=== PATIENT | female | born 1980 | race Caucasian/White ===

== ENCOUNTER 2019-06-02 11:46 | Outpatient (CLI) | payer BC, SELFPAY ==
[2019-06-04 15:26] LABS: SARS-CoV-2 RNA Undetected (Undetected); SARS-CoV-2 Specimen Source Nasopharynx
== END 2019-06-02 12:06 ==
PROVIDERS: PCP Family Medicine; Visit Provider Specialist/Technologist Athletic Trainer
DX: Z20.828 Contact with and (suspected) exposure to other viral communicable diseases (principal)
CPT/HCPCS: U0003

== ENCOUNTER 2023-02-21 18:42 | Outpatient (REF) | payer BC, SELFPAY ==
[2023-02-21 21:14] LABS: TSH (W/Ref FT4) 0.93 uIU/mL (0.36-3.74)
== END 2023-02-21 18:43 | disposition home or self-care (01) ==
LOC: NCHCN 18:42
PROVIDERS: PCP Family Medicine; Visit Provider Family Medicine
DX: R53.83 Other fatigue (principal)
CPT/HCPCS: 84443

== ENCOUNTER 2024-02-14 15:26 | Outpatient (CLI) | payer BC, SELFPAY ==
--- NOTE | 2024-02-14 | DI.MAMMO_ITS ---
Exam(s) MAMMO SCREENING EXAM: MAMMO SCREENING CLINICAL HISTORY: Baseline screening, Z12.31. TECHNIQUE: Bilateral full field digital CC and MLO mammographic images were obtained with 3D tomosyn thesis and utilizing computer aided detection (CAD). COMPARISON: None. This is a baseline mammogram on a 43-year-old. FINDINGS: There are no CAD designations There are no spiculated masses nor malignant appearing microcalcification groups. There is no significant architectural distortion nor skin thickening-retraction. IMPRESSION: No radiographic evidence of malignancy. BI-RADS Category 1 - Negative Breast Density - Category B - Scattered areas of fibroglandular density Breast density Category C or D implies that the patient has dense breast tissue. Dense breast tissue can make it harder to find cancer on a mammogram. Dense breast tissue is also associated with an incr eased risk of breast cancer. This information about the result of the mammogram report was provided to the patient to raise their awareness. Use this report when you speak with the patient about their risks for breast cancer, which includes their family history. At that time, you may recommend additional screening tests (Ultrasoun d or MRI) as these tests may add significant information. A negative radiographic report should not delay biopsy if a dominant or clinically suspicious mass is present. Up to ten percent of cancers are not identified on mammography. A negative report may reinforce clinical impression. Adenosis and dense breasts may obscure an underlying neoplasm. False positive reports average 6 to 10%. Patient will receive a letter notifying them of these results.
--- OUTSIDE RECORDS SUMMARY | 2024-02-14 15:29 | XMS_ITS | Continuity of Care Document ---
Author Organization [place] - [facility] Address [address] [place] [address] Assessment No assessment recorded. Plan of Treatment Reminders Order Date Submit Date Provider Last Modified By Organization Details Last Modified Time Details Appointments Nurse Visit 2024 10:00A M [place] Nursing Staff Not available Not available Not available Follow Up 2024 02:00P M OBED CAREY Not available Not available Not available Lab None recorded. Referral None recorded. Procedures colonosco py screening (PROC) - Due for screening colonosco py 2023 024 [facility], [address] [place] [address] , [facility], [place], [address], 01/24/2024 16:29:05 Surgeries None recorded. Imaging MAMMO, screening , bilateral - no to screening questions 2023 024 [facility] (Radiology), [address] [place] [address] [place], [address], 01/23/2024 08:42:19 Medication Orders citalopra m 40 mg tablet 2023 024 [facility], [address] [place], [address], 01/22/2024 16:28:55 rosuvasta tin 20 mg tablet 2023 024 [facility], [address] [place], [address], 01/22/2024 16:28:55 Patient TargetsNo targets recorded. Patient Instructions Encounter Date Encounter Id Patient Instructions Last Modified By Organization Details Last Modified Time 01/22/2024 [id number] Dear reji, Thank you for visiting us today. We appreciate your commitment to maintaining and improving your health. Here is a summary of the hernández instructions from today's consultation: - Obtain results from your previous Pap smear conducted at [facility]. - Schedule a mammogram to monitor breast health. - Begin preparations for a colonoscopy, given your age and family history. - Continue monitoring your cholesterol levels. We discussed switching your cholesterol medication from atorvastatin to rosuvastatin to potentially reduce side effects. Remember to take it at night for better efficacy. - Follow up on your liver function tests in about a month to monitor any potential side effects from the cholesterol medication. - Refill prescriptions for atorvastatin, citalopram, and your ADHD medications. - Schedule and complete a controlled substance treatment form during your next visit. - We will initiate the referral process for your mammogram and colonoscopy. Please ensure to follow up with us or your pharmacy as needed to manage your prescriptions and appointments. Your next regular visit is due in six months, and we recommend scheduling it in the morning so you can fast beforehand if needed for cholesterol testing. Thank you once again for your proactive approach to your health. If you have any questions or concerns before your next visit, do not hesitate to contact our office. Best regards, Dr. Obed Carey MD Family Medicine [email or web address] Not available 01/23/2024 07:59:06 Reason for Referral None Reported. Problems Name Problem SNOMED Code Status Onset Date Resolution Date Notes Provider Name and Address Organization Details Recorded Time Attentio n deficit hyperact ivity disorder 696597599 Active [address], [place], [address] , [facility] 4 10:34:30 Migraine 13459941 Active 2017 Problem Code: G43.909; Problem Code Type: ICD-10; MD [address], [place], [address] , [facility] 4 07:53:10 Counseli harjit Completed 201707/02/2017 06/19/19 18 - Comments only - Quita carmona DIRECTOR HAIR - - Here for [facility]. We have no vaccines and no pap smear. She has had her [employer] care at [facility] [place] and is not sure when her last pap was done. Records requeste d. 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 She reports she does not believe in the flu vaccine but believes she has gotten all her other vaccines . She will return for her annual at her next convenie [facility] Problem Code: Z71.89; Problem Code Type: ICD-10; Not Available [facility] 3 03:56:01 Anxiety 61483167 Active 2018 Problem Code: F41.8; Problem Code Type: ICD-10; [facility] 3 12:35:47 Viral disease 71287822 Completed 201906/06/2019 Problem Code: B34.9; Problem Code Type: ICD-10; Not Available [facility] 3 03:56:01 Acute pharyngi tis 007347789 Completed 202012/10/2020 11/27/19 21 - Comments only - Annabel Carlos DIRECTOR HAIR - Negative strep complete d at today's visit. Patient reports negative COVID test since symptom onset. I think this is likely to pass without further interven tion. There is a small chance it is allergy mediated (althoug h not likely which I was transpar ant about). She could try an antihist amine if she would like. Problem Code: J02.9; Problem Code Type: ICD-10; Not Available [facility] 3 03:56:01 Hyperlip idemia 17648741 Active 2021 Problem Code: E78.49; Problem Code Type: ICD-10; WILLOW GRIMM, [facility] 3 12:35:47 Obesity 089909447 Active 2022 Problem Code: E66.9; Problem Code Type: ICD-10; MD Kulwant [address], [facility] [address] , [facility] 4 07:53:16 Posttrau matic stress disorder 88874502 Active 2022 Problem Code: F43.10; Problem Code Type: ICD-10; WILLOW GRIMM, [facility] 3 12:35:47 Episodic tension- type headache 191180864 Active 2022 Problem Code: G44.219; Problem Code Type: ICD-10; MD Kulwant [address], [facility] [address] , [facility] 4 07:53:20 Adult health examinat ion Active 2022 Problem Code: Z00.00; Problem Code Type: ICD-10; WILLOW GRIMM, [facility] 3 12:35:47 Adult health examinat ion Completed 200311/29/2018 Problem Code: Z00.00; Problem Code Type: ICD-10; WILLOW GRIMM, [facility] 3 12:35:47 Major depressi on, single episode 89169719 Completed 201811/29/2022 08/13/19 22 - Comments only - Annabel TIAN - Doing well at this time, no medicati on changes. Problem Code: F32.9; Problem Code Type: ICD-10; Not Available [facility] 3 03:56:04 Fatigue 30100385 Completed 201708/23/2022 Problem Code: R53.83; Problem Code Type: ICD-10; MD Kulwant [address], [facility] [address] , [facility] 4 07:53:26 Visual disturba nce 25185623 Completed 201708/23/2022 Problem Code: H53.9; Problem Code Type: ICD-10; Not Available [facility] 3 03:56:07 Abnormal weight gain 222104120 Completed 201701/11/2022 Problem Code: R63.5; Problem Code Type: ICD-10; Not Available [facility] 3 03:56:09 Headache 01299410 Completed 201711/29/2022 08/13/19 22 - Comments only - Annabel Gonzalez DIRECTOR HAIR - Improved with topamax, without side effects. Will continue at 50mg dosage. Problem Code: R51; Problem Code Type: ICD-10; Not Available [facility] 3 03:56:10 Problem Notes None recorded. Medical Equipment None Reported. Medications Name Sig Start Date Stop Date Status Note LastModified by Organization Details LastModified Time atorvastati n 40 mg tablet TAKE 1 TABLET BY MOUTH AT BEDTIME 01/21 completed Not Available Not Available Not Available Adderall 30 mg tablet 1TAB daily 2011 active Not Available Not Available Not Avai lable Adderall 20 mg tablet Take 1 tablet by mouth once a day 2023 active Not Available Not Available Not Avai lable doxycycline hyclate 100 mg capsule Take 1 capsule by mouth twice a day 08/30 completed Not Available Not Available Not Available citalopram 40 mg tablet Take 1 tablet by mouth once a day active Not Available Not Available No t Available Topamax 25 mg tablet Take 1 tablet by mouth once a day 08/12 completed Not Available Not Available Not Available Adderall XR 20 mg capsule,ext ended release Take 1 capsule by mouth every morning 2023 active Not Available Not Available Not Avai lable citalopram 20 mg tablet Take 1 by mouth daily 06/09 completed Not Available Not Available Not Available rizatriptan 10 mg disintegrat ing tablet DISSOLVE 1 TABLET ON THE TONGUE EVERY DAY NEEDED. MAY REPEAT 1 TIME IN 2 HOURS IF NOT EFFECTIVE active Not Available Not Available No t Available dextroamphe tamine-amph etamine ER 10 mg 24hr capsule,ext end release TAKE TWO CAPSULES BY MOUTH EVERY MORNING 12/03 completed Not Available Not Available Not Available Wellbutrin SR 200 mg tablet, 12 hr sustained-r elease 1TAB daily 06/18 completed Not Available Not Available Not Available rosuvastati n 20 mg tablet Take 1 tablet every day by oral route at bedtime. active Not Available Not Available No t Available Topamax 50 mg tablet Take 1 tablet by mouth once a day 02/21 completed Not Available Not Available Not Available polyethylen e glycol 3350 17 grams daily 08/22 completed Not Available Not Available Not Available Repatha SureClick 140 mg/mL subcutaneou s pen injector Inject 3 pen injector subcutane ously once a month 05/17 completed Not Available Not Available Not Available Ozempic 0.25 mg or 0.5 mg (2 mg/1.5 mL) subcutaneou s pen injector 02/21 completed Not Available Not Available Not Available Ozempic 1 mg/dose (4 mg/3 mL) subcutaneou s pen injector INJECT 2MG (2ML) SUBCUTANE OUSLY ONCE A WEEK DIRECTED 02/21 completed Not Available Not Available Not Available Wegovy 0.25 mg/0.5 mL subcutaneou s pen injector Inject 1/4 mg subcutane ously once a week for four weeks then increase to 0.5 mg once weekly 05/04 completed Not Available Not Available Not Available Ozempic 2 mg/dose (8 mg/3 mL) subcutaneou s pen injector INJECT 2 MG UNDER THE SKIN ONE DAY A WEEK 2023 active Not Available Not Available Not Avai lable Ozempic 0.25 mg or 0.5 mg (2 mg/3 mL) subcutaneou s pen injector Inject 1/2 mg subcutane ously once a week For 4 weeks, then inject 0.5 mg subcutane ously once weekly. 07/07 completed Not Available Not Available Not Available Vitals Date Recorded Body height Body mass index (BMI) Body weight Oxygen saturation Oxygen saturation in Arterial blood by Pulse oximetry Heart rate Systolic blood pressure Diastolic blood pressure Provider Name and Address Organization Details Last Updated DateTime 4 163.83 cm 26.2 kg/m2 81482.8 2 g 97 % 97 % 83 /min 118 mm[Hg] 72 mm[Hg] Luciana Forman [facility] 16:03:50 Social History Question Answer Notes LastModified by Organizat ion Details LastModified Time Tobacco Smoking Status Never Smoker Luciana barber, [facility] 01/22/2024 16:05:06 Do You Have An Advance Directive? No Information n ot available 01/23/2024 Is Blood Transfusion Acceptable In An Emergency? Yes Information not available 01/23/2024 What Is Your Code Status? Full Code Information not available 01/23/2024 1) Date Of Last VPMS Check? 01/02/2024 Dextro-Amph et 20mg Once A Day Filled 12/05/23 #28 And The Adderall XR 20mg Filled 12/05/23 #28 Information not available 01/02/2024 2) VPMS Findings No Concerns Informa tion not available 12/04/2023 4) Daily MME 0 Information not available 12/04/2023 Would You Say That, In General, Your Health Is Good Information not available 01/23/2024 Women Aged 18-50 - Would You Like To Become In The Next Year? (Female Patients Only) No Information not available 01/23/2024 How Often Does Anyone, Including Family, Physically Hurt You? Never Information not available 01/23/2024 How Often Does Anyone, Including Family, Insult Or Talk Down To You? Never Information no t available 01/23/2024 How Often Does Anyone, Including Family, Threaten You With Harm? Never Information not available 01/23/2024 How Often Does Anyone, Including Family, Scream Or Curse At You? Never Information not available 01/23/2024 Within The Past 12 Months, You Worried That Your Food Would Run Out Before You Got Money To Buy More. Never True Information n ot available 01/23/2024 Within The Past 12 Months, The Food You Bought Just Didn't Last And You Didn't Have Money To Get More. Never True Information n ot available 01/23/2024 How Hard Is It For You To Pay For The Very Basics Like Food, Housing, Medical Care, And Heating? Would You Say It Is: Not Hard At All Information not available 01/23/2024 In The Past 12 Months, Has Lack Of Reliable Transportation Kept You From Medical Appointments, Meetings, Work Or From Getting Things Needed For Daily Living? No Information not available 01/23/2024 What Is Your Housing Situation Today? I Have Housing. Information not available 01/23/2024 How Often In The Past Year Have You Used Marijuana (including Smoking, Vaping, Dabbing, Or Edibles)? Never Information not available 01/23/2024 How Often In The Past Year Have You Used Prescription Medications That Were Not Prescribed To You? Never Information n ot available 01/23/2024 How Often In The Past Year Have You Taken Your Own Prescription Medication More Than The Way It Was Prescribed Or For Different Reasons Than Its Intended Purpose? Never Information no t available 01/23/2024 How Often In The Past Year Have You Used Other Drugs (for Example, Heroin, Cocaine, Meth, Salvia, Inhalants)? Never Information not available 01/23/2024 Have You Ever Used IV Drugs? No Information not available 01/23/2024 Date Of Most Recent SBINS 01/22/2024 Information not available 01/23/2024 Do You Have A Medical Power Of Student Services Representative? No Information not available 01/23/2024 What Was The Date Of Your Most Recent Tobacco Screening? 01/22/2024 [email or web address] Information not available 01/22/2024 Has Tobacco Cessation Counseling Been Provided? No Information not available 01/23/2024 Do You Or Have You Ever Used Any Other Forms Of Tobacco Or Nicotine? No Information not available 01/23/2024 Sex: Female Functional Status None recorded. Mental Status None recorded. Family History Nothing Reported Notes:*Problem: Her mother h as bipolar disorder, is 56. Her father is 59 and has heart disease/valve issue. Her two siblings are healthy. She feels that heart disease, hypertension, and hyperlipidemia, and Alzheimer's disease run in her family. Medical History No medical history recorded. Gynecological HistoryNo gynecological history recorded. Obstetrics History GPAL:G 0 P 0 0 0 0 Immunizations Vaccine Type Date Status Note Provider Nam e and Address Organization Details Recorded Time Tdap 1 completed Not Available [facility] 01/12/2023 04:06:59 SARS-COV-2 (COVID-19) vaccine, UNSPECIFIED 1 completed Not Available [facility] 01/12/2023 04:07:06 SARS-COV-2 (COVID-19) vaccine, UNSPECIFIED 1 completed Not Available [facility] 01/12/2023 04:07:06 SARS-COV-2 (COVID-19) vaccine, UNSPECIFIED 0 completed Not Available [facility] 01/12/2023 04:07:06 COVID-19, mRNA, LNP-S, PF, serg-sucrose, 30 mcg/0.3 mL 3 completed OBED CAREY MD [facility] [address], [place], [address], [facility] 02/27/2023 21:50:54 Past Encounters Encounter ID Performer Location Encounter Start Date Encounter Closed Date Diagnosis/Indication Diagnosis SNOMED-CT Code Diagnosis ICD10 Code [id number] OBED CAREY MD [address] [address] 01/10/2024 09:54:30 01/10/2024 10:44:34 Posttraumatic stress disorder 14739598 F43.10 [id number] OBED CAREY MD [address] [address] 01/22/2024 15:19:27 01/22/2024 16:34:42 Adult health examination 091683535 Z00.00 Screening for malignant neoplasm of colon 105080656 Z12.11 Screening mammography 24 758510 Z12.31 Attention deficit hyperactivity disorder 791732763 F90.9 Anxiety 10355210 F41.9 Hyperlipidemia 75400847 E78.5 Obesity 914514557 E66.9 Health Concerns Section Related Observation LastModified by Organization Detai ls LastModified Time None Recorded Concern Status LastModified by Organization Details LastModified Time None Recorded Payers Encounter Date Sequence Insurance Name Policy Number Policy B[place] Covered Member ID B[place] Member ID Guarantor Name 01/22/2024 1 [facility] [id number] Irma oLmbardi [id number] Irma Padilla Lombardi Notes Date Note Type Note Provider Name and Address Organization Details Recorded Time 01/22/2024 text/html The patient, a 43-year-old, is here for an annual exam and reports having had a Pap smear about six months ago at [facility]. She mentions a family history of cancer, with an aunt having had breast cancer and a grandfather with pancreatic cancer. Her father had heart disease related to valve issues and a heart attack but is currently stable on medication. The patient has received the flu vaccine but expresses reluctance to get the COVID vaccine, citing previous infections despite vaccination. She reports having had COVID twice and influenza once, even after receiving the flu shot. She denies any current issues with headaches, vision, chest pain, palpitations, or significant respiratory symptoms, though she notes some as expected shortness of breath when running. She mentions her menstrual periods are becoming less regular. Regarding medications, the patient has not taken atorvastatin for about five months due to experiencing significant fatigue and head fog when taking it during the day. She is willing to try it at night or another brand going forward.. She also takes yam root for hot flashes at night. The patient is on amphetamine/dextro amphetamine (Adderall) for ADHD, which she reports is working well without side effects. She does not smoke or drink and denies substance abuse. She also mentions needing a refill for citalopram. OBED CAREY MD [address], [place], [address], [facility]. 01/24/2024 13:33:36 OBGyn Episode No OBEpisode recorded.
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
--- OUTSIDE RECORDS SUMMARY | 2024-02-14 15:29 | XMS_ITS | Data Portability ---
Author Organization [place] - [facility] Address [address] [place] [address] Assessment No assessment recorded. Plan of Treatment Reminders Order Date Submit Date Provider Last Modified By Organization Details Last Modified Time Details Appointments Nurse Visit 2024 10:00A M [place] Nursing Staff Not available Not available Not available Follow Up 2024 02:00P M REYNOLD CAREY Not available Not available Not available Lab TSH, serum, reflex free T4 2022 023 [email or web address] [facility] (Registration ), [address] [place] [address] [place], [address], 02/28/2023 10:48:28 Referral None recorded. Procedures colonosco py screening (PROC) - Due for screening colonosco py 2023 024 [facility], [address] [place] [address] , [facility] [address], [place], [address], 01/24/2024 16:29:05 Surgeries None recorded. Imaging MAMMO, screening , bilateral - no to screening questions 2023 024 [facility] (Radiology), [address] [place] [address] [place], [address], 01/23/2024 08:42:19 Medication Orders Adderall 20 mg tablet 2022 023 [facility], [address] [place], [address], 03/23/2023 16:11:07 Adderall XR 20 mg capsule,e xtended release 2022 023 [facility], [address] [place] [address], [id number], 02/21/2023 23:26:09 Adderall 20 mg tablet 2022 023 [facility], [address] [place] [address], [address], 03/23/2023 16:11:07 Adderall 20 mg tablet 2022 023 cynthia [facility], [address] [place] [address], [address], 03/23/2023 16:11:07 Adderall XR 20 mg capsule,e xtended release 2022 023 [facility], [address] [place] [address], [id number], 02/21/2023 23:26:09 Adderall XR 20 mg capsule,e xtended release 2022 023 [facility], [address] [place] [address], [address], 02/21/2023 23:26:11 citalopra m 40 mg tablet 2023 024 [facility], [address] [place] [address], [address], 01/22/2024 16:28:55 rosuvasta tin 20 mg tablet 2023 024 [facility], [address] [place] [address], [address], 01/22/2024 16:28:55 Patient TargetsNo targets recorded. Patient Instructions Encounter Date Encounter Id Patient Instructions Last Modified By Organization Details Last Modified Time 01/10/2024 [id number] Dear reji, Thank you for visiting my [...] questions or need further assistance. Best regards, Reynold Carey MD Family Medicine hallie Not available 01/10/2024 10:52:45 01/22/2024 [id number] Dear reji, Thank you for visiting us [...] to contact our office. Best regards, Dr. Reynold Carey MD Family Medicine hallie Not available 01/23/2024 07:59:06 Reason for Referral None Reported. Results Created Date Observation Date Name Description Value Unit Range Abnormal Flag Note LastModifiedBy Organization Detail LastModifiedTime 02/22/20 23 02/21/2023 TSH (W/RE F FT4) TSH (w/ref FT4) 0.93 uIU/m L 0.36-3 .74 normal NOTE: Supra -phys iolog ic doses of Bioti n(B7) may cause false negat pj resul ts. Not Available [facility] [address], [place], [address] 02/21/2023 21:19:37 Result Notes None recorded. Problems Name Problem SNOMED Code Status Onset Date Resolution Date Notes Provider Name and Address Organization Details Recorded Time Attentio n deficit hyperact ivity disorder 362541225 Active [address], [place], [address] , [facility] 4 10:34:30 Migraine 44220117 Active 2017 Problem Code: G43.909; Problem Code Type: ICD-10; MD [address], [place], [address] , [facility] 4 07:53:10 Deidre lombardi Completed 201707/02/2017 06/19/19 18 - Comments only - Quita TIAN - - Here for [facility] of care. We have no vaccines and no pap smear. 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 Records requeste d. 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 She reports she does not believe in the flu vaccine but believes she has gotten all her other vaccines . She will return for her annual at [facility] next [facility] Problem Code: Z71.89; Problem Code Type: ICD-10; Not Available [facility] 3 03:56:01 Anxiety 10602611 Active 2018 Problem Code: F41.8; Problem Code Type: ICD-10; [facility], [facility] 3 12:35:47 Viral disease 30699438 Completed 201906/06/2019 Problem Code: B34.9; Problem Code Type: ICD-10; Not Available [facility] 3 03:56:01 Acute pharyngi tis 534673232 Completed 202012/10/2020 11/27/19 21 - Comments only - Annabelleonor Gonzalez 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 - Negative strep complete d at today's [...] J02.9; Problem Code Type: ICD-10; Not Available [facility] 3 03:56:01 Hyperlip idemia 58345216 Active 2021 Problem Code: E78.49; Problem Code Type: ICD-10; [place] [facility], [facility] 3 12:35:47 Obesity 516185271 Active 2022 Problem Code: E66.9; Problem Code Type: ICD-10; MD Kul[address], [facility] [address] , [facility] 4 07:53:16 Posttrau matic stress disorder 92278800 Active 2022 Problem Code: F43.10; Problem Code Type: ICD-10; [place], [facility] 3 12:35:47 Episodic tension- type headache 509894271 Active 2022 Problem Code: G44.219; Problem Code Type: ICD-10; MD Kulwant [address], [facility] [address] , [facility] 4 07:53:20 Adult health examinat ion Active 2022 Problem Code: Z00.00; Problem Code Type: ICD-10; REX JUNIOR MA null, [facility] 3 12:35:47 Adult health examinat ion Completed 200311/29/2018 Problem Code: Z00.00; Problem Code Type: ICD-10; REX JUNIOR MA null, [facility] 3 12:35:47 Major depressi on, single episode 17907391 Completed 201811/29/2022 08/13/19 22 - Comments only - Annabel Gonzalez 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 Problem Code: F32.9; Problem Code Type: ICD-10; Not Available [facility] 3 03:56:04 Fatigue 22072758 Completed 201708/23/2022 Problem Code: R53.83; Problem Code Type: ICD-10; REYNOLD CAREY MD [address], [place], [address] [facility] 4 07:53:26 Visual disturba nce 56318087 Completed 201708/23/2022 Problem Code: H53.9; Problem Code Type: ICD-10; Not Available [facility] 3 03:56:07 Abnormal weight gain 713353163 Completed 201701/11/2022 Problem Code: R63.5; Problem Code Type: ICD-10; Not Available [facility] 3 03:56:09 Headache 19356462 Completed 201711/29/2022 08/13/19 22 - Comments only - Annabelleonor Gonzalez 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 Will continue at 50mg dosage. Problem Code: R51; Problem Code Type: ICD-10; Not Available [facility] 3 03:56:10 Problem Notes None recorded. [...] and Address Organization Details Last Updated DateTime 3 163.83 cm 28.1 kg/m2 85834.3 3 g 97.3 [degF] 98 % 98 % 80 /min 128 mm[Hg] 84 mm[Hg] REYNOLD CAREY MD [address], [place], [address] [place] [address] 3 14:56:28 Date Recorded Body height Body mass index (BMI) Body weight Oxygen saturation Oxygen saturation in Arterial blood by Pulse oximetry Heart rate Systolic blood pressure Diastolic blood pressure Provider Name and Address Organization Details Last Updated DateTime 4 163.83 cm 26.1 kg/m2 42393.3 2 g 96 % 96 % 97 /min 119 mm[Hg] 77 mm[Hg] Gary Gilbert [facility] 4 13:44:55 Date Recorded Body height Body mass index (BMI) Body weight Body temperature Oxygen saturation Oxygen saturation in Arterial blood by Pulse oximetry Heart rate Systolic blood pressure Diastolic blood pressure Provider Name and Address Organization Details Last Updated DateTime 163.83 cm 26.5 kg/m2 81308 g 97.2 [degF] 98 % 98 % 74 /min 122 mm[Hg] 82 mm[Hg] REX JUNIOR MA [facility] 4 10:14:03 Date Recorded Body height Body mass index (BMI) Body weight Oxygen saturation Oxygen saturation in Arterial blood by Pulse oximetry Heart rate Systolic blood pressure Diastolic blood pressure Provider Name and Address Organization Details Last Updated DateTime 4 163.83 cm 26.2 kg/m2 38508.8 2 g 97 % 97 % 83 /min 118 mm[Hg] 72 mm[Hg] Luciana Forman [facility] 16:03:50 Social History Question Answer Notes LastModified by Organizat ion Details LastModified Time Tobacco Smoking Status Never [facility] 01/22/2024 16:05:06 Do You Have An [...] Do You Have A Medical Power Of Scrap Metal Collector? No Information not available 01/23/2024 What Was The Date Of Your Most Recent Tobacco Screening? 01/22/2024 Information not available 01/22/2024 Has Tobacco Cessation [...] Recorded Time Tdap 1 completed Not Available [facility] 01/12/2023 04:06:59 SARS-COV-2 (COVID-19) vaccine, UNSPECIFIED 1 completed Not Available [facility] 01/12/2023 04:07:06 SARS-COV-2 (COVID-19) vaccine, UNSPECIFIED 1 completed Not Available [facility] 01/12/2023 04:07:06 SARS-COV-2 (COVID-19) vaccine, UNSPECIFIED 0 completed Not Available [facility] 01/12/2023 04:07:06 COVID-19, mRNA, LNP-S, PF, serg-sucrose, 30 mcg/0.3 mL [address], [place], [address], [facility]. 02/27/2023 21:50:54 Past Encounters Encounter ID Performer Location Encounter Start Date Encounter Closed Date Diagnosis/Indication Diagnosis SNOMED-CT Code Diagnosis ICD10 Code [id number] REYNOLD CAREY MD [address] [address] 02/21/2023 14:46:11 02/21/2023 16:10:52 Attention deficit hyperactivity disorder 731929702 F90.9 Active or passive immunization 455054720 Z23 Fatigue 10368056 R53.83 [id number] REYNOLD CAREY MD [address] [address] 10/18/2023 13:35:49 10/18/2023 14:06:32 Upper respiratory infection 10786115 J06.9 [id number] REYNOLD CAREY MD [address] [address] 01/10/2024 09:54:30 01/10/2024 10:44:34 Posttraumatic stress disorder 75957605 F43.10 [id number] REYNOLD CAREY MD [address] [address] 01/22/2024 15:19:27 01/22/2024 16:34:42 Adult health examination 797127861 Z00.00 Screening for malignant neoplasm of colon 689777311 Z12.11 Screening mammography 24 959921 Z12.31 Attention deficit hyperactivity disorder 032517781 F90.9 Anxiety 57280360 F41.9 Hyperlipidemia 30868276 E78.5 Obesity 530584969 E66.9 Health Concerns Section Related Observation LastModified by Organization Detai ls LastModified Time None Recorded Concern Status LastModified by Organization Details LastModified Time None Recorded Advance Directives Directive N: Payers Encounter Date Sequence Insurance Name Policy Number Policy Bingham Covered Member ID Bingham Member ID Guarantor Name 02/21/2023 1 [place] [employer] [place] [id number] Irma Lombardi [id number] Irma Lombardi 10/18/2023 1 [place] [employer] [place] [id number] Irma [id number] Irma Lombardi 01/10/2024 1 [place] [employer] [place] [id number] Irma Lombardi [id number] Irma Lombardi 01/22/2024 1 [place] [employer] [place] [id number] Irma Lombardi [id number] Irma Lombardi Notes Date Note Type Note Provider Name and Address Organization Details Recorded Time 02/21/2023 text/html Patient here for follow-up for her ADHD and other issues. Is due for refills for her Adderall. We have attempted to try to match up the prescription dates for her long-acting and short acting doses. Has number today, will try again today. Patient unchanged. When she does not have her Adderall she states she in particular coworkers definitely noticed. Much more flighty, disorganized. States she is felt fatigued recently. Has not had menses for quite a bit of time and is getting them once again. Does pretty. Menopausal. Getting over a recent cold symptoms, back to normal now. She has no side effects to the Adderall, no tics, sleeping well MD [address], [place], [address], [facility]. 02/27/2023 21:54:17 10/18/2023 text/html 1 wk ago sore th roat began, progressed to aches, dry cough, [place]. Upper congestion. No fever, no GI. Now head foggy, throat hurts, dry cough, better energy. No myalgia or arthralgia. Symptoms significant proved. Still has residual generally nonproductive cough. No fevers chills myalgias or arthralgias MD [address], [place], [address], [facility]. 10/22/2023 23:15:33 01/10/2024 text/html The patient repo rts ongoing [...] and their love for the work itself. MD [address], [place], [address], [facility]. 01/14/2024 14:45:41 01/22/2024 text/html The patient, a 43-year-old, is [...] flashes at night. The patient is on amphetamine/dextroamph etamine (Adderall) for ADHD, which she reports is working well without side effects. She does not smoke or drink and denies substance abuse. She also mentions needing a refill for citalopram. MD [address], [place], [address], [facility] 01/24/2024 13:33:36 OBGyn Episode No OBEpisode recorded.
--- OUTSIDE RECORDS SUMMARY | 2024-02-14 15:29 | XMS_ITS | Clinical Summary ---
Author Organization [facility] Address [address] [place] [address] Care Team Providers Care Hammerer Tab Name Role Phone [facility], Primary Care Provider [phone] Allergies Active Allergy Reactions Criticality Noted Date Comments Venom-Honey Bee 11/21/2018 Other reaction(s): severe swelling Medications citalopram (CELEXA) 10 mg tablet Take 10 mg by mouth daily. Active Social History Tobacco Use Types Packs/Day Years Used Date Smoking Tobacco: Never Assessed Interpersonal Safety Answer Date Record ed Physically Hurt Never 10/05/2019 Verbally Threaten Not on file 10/05/2019 Comments Unknown Sex and Gender Information Value Date Recorded Sex Assigned at Not on file Legal Sex Female 18:06 EST Gender Identity Female 02/16/2019 15:00 EST Sexual Orientation Not on file Obstetrics History Last Filed Vital Signs Vital Sign Reading Time Taken Comments Blood Pressure 128/93 06/17/2022 1553 EDT Pulse 86 06/17/2022 1553 EDT Temperature 36.7 ??C (98 ??F) 06/17/2022 1553 EDT Respiratory Rate 14 06/17/2022 1553 EDT Oxygen Saturation 98% 06/17/2022 1553 EDT Inhaled Oxygen Concentration - - Weight 88.8 kg (195 lb 11.2 oz) 12/25/2021 1215 EDT Height 162.6 cm (5' 4) 12/25/2021 1215 EDT Body Mass Index 33.59 12/25/2021 1215 EDT Plan of Treatment Health Maintenance Due Date Last Done Comments Hepatitis B Vaccine (1 of 3 - 19+ 3-dose series) 10/26 COVID-19 Vaccine (2023- season) 2023 Hepatitis C Screen Completed 06/17/2022 Procedures Procedure Name Priority Date/Time Associated Diagnosis Comments HEPATITIS C AB W REFLEX TO HCV RNA BY PCR STAT 06/17/2022 16:03 EDT from Last 3 Months or Most Recently Relevant to Health Maintenance Results * HEPATITIS C AB W REFLEX TO HCV RNA BY PCR (06/17/2022 16:03 EDT) Hep C Antibody Negative Negative 06/17/2022 17:[address] [facility] Blood VENOUS BLOOD / Unknown Venipuncture / Unknown 06/17/2022 16:03 EDT 06/17/2022 16:07 EDT Abhilash Richardson PA-C CHEMISTRY & BLOOD GAS ORDERABLES Final Result [facility] [address] [place] [address] from Last 3 Months or Most Recently Relevant to Health Maintenance [place] [place] [address] Member Subscriber Plan / Payer (Ef fective 2018-Present) Name:Irma Lombardi Relation to Subscriber:Self Name:Irma Lombardi Payer ID:Not on file Group ID:Not on file Type:Work Comp GL Address: [place] [id number] [facility] , [address] [place] [address] Care Teams Hammerer Tab Relationship Specialty Start Date End Date [facility], [place] [address] [place] [address] PCP - General 06/17/22
--- OUTSIDE RECORDS SUMMARY | 2024-02-14 15:30 | XMS_ITS | Encounter Summary ---
Author Organization [facility] Address [address] [place] [address] Care Team Providers Care Automatic Maintainer Name Role Phone Deyanira Valentino MD Primary Care Provider [phone] Encounter Details Date Type Department Care Team (Latest Contact Info) Description 09/18/2014 9:43 EDT - 09/18/2014 23:59 EDT Hospital Encounter [address] [address] Unknown, Provider, Discharge Disposition: Home or Self Care Social History Tobacco Use Types Packs/Day Years Used Date Smoking Tobacco: Never Assessed Comments Unknown Sex and Gender Information Value Date Recorded Sex Assigned at Not on file Legal Sex Female 18:06 EST Gender Identity Female 02/16/2019 15:00 EST Sexual Orientation Not on file documented as of this encounter Discharge Disposition Disposition Code Departure Means Destination Home or Self Senior Living documented in this encounter Plan of Treatment Not on file documented as of this encounter Visit Diagnoses Not on filedocumented in this encounter Care Teams Automatic Maintainer Relationship Specialty Start Date End Date Deyanira Valentino MD [address] [place] [id number] PCP - General 12/09/09 02/21/21 documented as of this encounter
--- OUTSIDE RECORDS SUMMARY | 2024-02-14 15:30 | XMS_ITS | Encounter Summary ---
Author Organization [facility] Address [address] [place] [address] Care Team Providers Care Deputy Harbormaster Name Role Phone Annabel Gonzalez ASMITA Primary Care Provider Encounter Details Date Type Department Care Team (Late st Contact Info) Description 02/22/2021 9:35 EST Phlebotomy Only [facility] - Outpatient Phlebotomy Drawing [address] [place] [address] Lab, [facility] Op Phlebotomy Health examination in population survey (Primary Dx) Social History Tobacco Use Types Packs/Day Years [...] on file documented as of this encounter Plan of Treatment Not on file documented as of this encounter Procedures Procedure Name Priority Date/Time Associated Diagnosis Comments QUANTIFERON MITOGEN (PERFORMABLE) Routine 02/22/2021 9:54 EST Health examination in population survey QUANTIFERON TB2 (PERFORMABLE) Routine 02/22/2021 9:54 EST Health examination in population survey QUANTIFERON TB1 (PERFORMABLE) Routine 02/22/2021 9:54 EST Health examination in population survey QUANTIFERON NIL (PERFORMABLE) Routine 02/22/2021 9:54 EST Health examination in population survey QUANTIFERON INTERPRETATION (PERFORMABLE) Today 02/22/2021 9:54 EST Health examination in population survey QUANTIFERON TB GOLD PLUS Routine 02/22/2021 9:54 EST Health examination in population survey RUBELLA IGG ANTIBODY Routine 02/22/2021 9:54 EST Health examination in population survey HEPATITIS B SURFACE ANTIBODY Routine 02/22/2021 9:54 EST Health examination in population survey VARICELLA IGG ANTIBODY Routine 9:54 EST Health examination in population survey MUMPS ANTIBODY IGG Routine 02/22/2021 9: 54 EST Health examination in population survey documented in this encounter Results * QUANTIFERON INTERPRETATION (PERFORMABLE) (02/22/2021 9:54 EST) Quantiferon Interpretation Negative Negative 02/25/2021 13:05 EST [facility] Comment:No interferon-gamma response to M. tuberculosis antigens was detected. ??Infection with M. tuberculosis is unlikely. A single negative result does not exclude infection with M. tuberculosis. ??In patients at high risk for M. tuberculosis infection, a second test should be considered. TB1 Ag minus Nil 0.00 IU/ml 02/26/20 13:05 EST [facility] TB2 Ag minus Nil 0.00 IU/mL 02/26/20 13:05 [facility] Blood VENOUS BLOOD / Unknown Venipuncture / Unknown 02/22/2021 9:54 EST 02/25/2021 13:04 EST Narrative [facility] - 02/25/2021 13:05 EST Results were obtained with the [employer] QuantiFERON-TB Gold Plus CLIA. New platform in use 11/10/2020 [facility] Employee Health IMMUNOLOGY AND SEROLO GY ORDERABLES Final Result [facility] [address] [place] [address] * QUANTIFERON MITOGEN (PERFORMABLE) (02/22/2021 9:54 EST) Blood VENOUS BLOOD / Unknown Venipuncture / Unknown 02/22/2021 9:54 EST 02/22/2021 10:[address] [facility] Employee Health IMMUNOLOGY AND SEROLO GY ORDERABLES Final Result Performing Organization Address [facility] Co de Phone Number [facility] [address] [place] [phone] * QUANTIFERON TB2 (PERFORMABLE) (02/22/2021 9:54 EST) Blood VENOUS BLOOD / Unknown Venipuncture / Unknown 02/22/2021 9:54 EST 02/22/2021 10:[address] [facility] Employee Health IMMUNOLOGY AND SEROLO GY ORDERABLES Final Result Performing Organization Address [facility] Co de Phone Number [facility] [address] [place] [phone] * QUANTIFERON TB1 (PERFORMABLE) (02/22/2021 9:54 EST) Blood VENOUS BLOOD / Unknown Venipuncture / Unknown 02/22/2021 9:54 EST 02/22/2021 10:[address] [facility] Employee Health IMMUNOLOGY AND SEROLO GY ORDERABLES Final Result Performing Organization Address [facility] Co de Phone Number [facility] [address] [place] [address] * QUANTIFERON NIL (PERFORMABLE) (02/22/2021 9:54 EST) Blood VENOUS BLOOD / Unknown Venipuncture / Unknown 02/22/2021 9:54 EST 02/22/2021 10:[address] [facility] Employee Health IMMUNOLOGY AND SEROLO GY ORDERABLES Final Result Performing Organization Address [facility] Co de Phone Number [facility] [address] [place] [address] * HEPATITIS B SURFACE ANTIBODY (02/22/2021 9:54 EST) Pathologist [facility] Hep B Surface Ab, Quantitative 0.0 See Note mIU/mL 02/22/2021 11:41 EST [facility] Comment: Clinical Interpretation of Immune Status: Patient is considered to be not immune to infection with HBV. The results of this assay can be falsely lowered due to the consumption of Biotin. Reference Range for Hep B Surface Ab, Quant: Positive: ?>= 12.00 mIU/mL Negative: ?< 5.00 mIU/mL Indeterminate: ??>= 5.00 mIU/mL and < 12.00 mIU/mL Blood VENOUS BLOOD / Unknown Venipuncture / Unknown 02/22/2021 9:54 EST 02/22/2021 10:[address] [facility] Employee Health CHEMISTRY & BLOOD GAS ORDERABLES Final Result Performing Organization Address [facility] Co de Phone Number [facility] [address] [place] [address] * VARICELLA IGG ANTIBODY (02/22/2021 9:54 EST) [facility] Varicella IgG Ab Positive See Note 02/23/2021 0:09 EST [facility] Comment:Presence of detectab le Varicella Zoster virus IgG antibodies. Blood VENOUS BLOOD / Unknown Venipuncture / Unknown 02/22/2021 9:54 EST 02/22/2021 10:[address] [facility] Employee Health IMMUNOLOGY AND SEROLO GY ORDERABLES Final Result Performing Organization Address [facility] Co de Phone Number [facility] [address] [place] [address] * MUMPS ANTIBODY IGG (02/22/2021 9:54 EST) [facility] Mumps Antibody IgG Negative See Note 02/23/2021 0:09 EST [facility] Comment:Absence of detectabl e mumps virus IgG antibodies. A negative result generally indicates that the patient is susceptible to mumps. Blood VENOUS BLOOD / Unknown Venipuncture / Unknown 02/22/2021 9:54 EST 02/22/2021 10:[address] [facility] Employee Health IMMUNOLOGY AND SEROLO GY ORDERABLES Final Result [facility] [address] [place] [address] * RUBELLA IGG ANTIBODY (02/22/2021 9:54 EST) Rubella IgG Ab Negative See Note 02/22/2021 11:40 EST [facility] Blood VENOUS BLOOD / Unknown Venipuncture / Unknown 02/22/2021 9:54 EST 02/22/2021 10:[address] [facility] Employee Health CHEMISTRY & BLOOD GAS ORDERABLES Final Result Performing Organization Address [facility] Co de Phone Number [facility] [address] [place] [address] documented in this encounter Visit Diagnoses Diagnosis Health examination in population survey- Primary documented in this encounter Orders Lab Orders Without Results Count Last Ordered D ate First Ordered Date MEASLES (RUBEOLA) IGM AB 1 02/22/2021 documented in this encounter Care Teams Deputy Harbormaster Relationship Specialty Start Date End Date Annabel Gonzalez FNP [address] [place] [phone] PCP - General 02/22/21 06/16/22 documented as of this encounter
--- OUTSIDE RECORDS SUMMARY | 2024-02-14 15:30 | XMS_ITS | Encounter Summary ---
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 Edema noted Encounter Details Date Type Department Care Team (Late st Contact Info) Description 12/25/2021 12:19 EDT - 12/25/2021 13:[address] [facility] Emergency Department [address] [place] [id number] Edis Lovett MD [address] [place] [address] Sprain of right ankle, unspecified ligament, initial encounter (Primary Dx) Discharge Disposition: Home or Self Care Social [...] 15:00 EST Sexual Orientation Not on file COVID-19 Exposure Response Date Recorded In the last 10 days, have yo u been in contact with someone who was confirmed or suspected to have Coronavirus/COVID-19? No / Unsure 12/25/2021 12:15 EDT documented as of this encounter Last Filed Vital Signs Vital Sign Reading Time Taken Comments Blood Pressure 125/78 12/25/2021 1215 EDT Pulse 97 12/25/2021 1215 EDT Temperature 36.7 ??C (98 ??F) 12/25/2021 1215 EDT Respiratory Rate - - Oxygen Saturation 99% 12/25/2021 1215 EDT Inhaled Oxygen Concentration - - Weight 88.8 kg (195 lb 11.2 oz) 12/25/2021 1215 EDT Height 162.6 cm (5' 4) 12/25/2021 1215 EDT Body Mass Index 33.59 12/25/2021 1215 EDT documented in this encounter Functional Status * Are you deaf or do you have serious difficulty hearing? Answer Date of Assessment Author No 12/25/2021 12:11 EDT Kapil Caldera RN documented as of this encounter Discharge Instructions * Discharge Instructions* Edis Lovett MD - 12/25/2021 13:24 EDT Thank you for coming to the ED at [facility] for your medical care. Whenever we see you in the emergency department we are getting a snapshot of your medical condition. Things can change and even small changes might alter how we care for you. If your symptoms change in a way that concerns you or makes you unsure, please return for re-evaluation. We are here 24 hours a day, every day of the year, so do not hesitate to return. You were seen here today for a rolled ankle. Thankfully, your x-ray does not show any broken bones.You may treat your pain with Tylenol and ibuprofen, and I recommend rest, ice, compression, and elevation. Please follow-up with your primary care doctor in 1 week if you are not improving. If you experience worsening symptoms or any new concerning symptom please return to the emergency department to be reevaluated. * Attachments The following attachments cannot be sent through Care Everywhere. * Ankle Sprain (Georgian) * RICE: General Info (Georgian) documented in this encounter Medications at Time of Discharge citalopram (CELEXA) 10 mg tablet Take 10 mg by mouth daily. documented as of this encounter Discharge Disposition Disposition Code Departure Means Destination Home or Self Skilled Nursing documented in this encounter ED Notes * Jamia Johnson RN - 12/25/2021 1232 EDT Ice applied to right ankle. * Edis Lovett MD - 12/25/2021 1227 EDT Emergency Department Visit Assessment and ED Course Relevant Data as of Dec 25 1699 Sun Dec 25, 2021 1231 The patient is a 41-year-old female who presents to the emergency department with ankle pain after rolling her ankle. Sensation, circulation and motor function is preserved. X-rays obtained which do not show any acute bony abnormality. Patient was able to bear weight with some discomfort, and declined crutches. I recommended rice therapy, Tylenol and ibuprofen, and to follow-up with her primary care doctor. Strict return precautions reviewed prior to discharge. Patient provided with a worknote. [NR] Relevant Data User Index [NR] Edis Lovett MD Final diagnoses: Sprain of right ankle, unspecified ligament, initial encounter Disposition: Discharged Chief complaint: Ankle pain HPI Irma Lombardi is a 41 y.o. female who presents to the emergency department with ankle pain after rolling her ankle while playing basketball 1 hour ago. She reports rolling her ankle with immediate pain and swelling at both the medial and lateral aspects. She has been able to bear weight but it hasbeen somewhat painful. She denies tingling, numbness, weakness. She denies any pain to her knee. She has not had anything for pain. History was provided by: Patient Patient's pertinent PMH, FH, SH were reviewed and edited as necessary. ROS A 10-point review of systems was performed. The patient answered negative to all questions with theexceptions of those explicitly detailed as positives in the HPI. Pertinent negatives are also explicitly stated. Physical Exam BP 125/78 (BP Cuff Location: Left arm, BP Patient Position: Sitting) Temp 36.7 ??C (98 ??F) (Oral) Ht 162.6 cm (64) Wt 88.8 kg (195 lb 11.2 oz) SpO2 99% BMI 33.59 kg/m?? A medical screening exam was performed. Physical Exam Vitals and nursing note reviewed. Constitutional: General: She is not in acute distress. Appearance: She is well-developed and well-nourished. She is not diaphoretic. HENT: Nose: Nose normal. No nasal discharge. Mouth/Throat: Mouth: Mucous membranes are moist. Eyes: Extraocular Movements: EOM normal. Conjunctiva/sclera: Conjunctivae normal. Pupils: Pupils are equal, round, and reactive to light. Pulmonary: Effort: Pulmonary effort is normal. No respiratory distress or retractions. Chest: Chest wall: No tenderness. Abdominal: General: There is no distension. Palpations: Abdomen is soft. Tenderness: There is no abdominal tenderness. Musculoskeletal: General: Tenderness and edema present. Normal range of motion. Cervical back: Normal range of motion and neck supple. Comments: Tenderness to the medial and lateral malleoli. Moderate swelling and ecchymosis present over the lateral malleolus. Patient able to actively range ankle and toes normally. No tenderness at the proximal fibula. Skin: General: Skin is warm and dry. Coloration: Skin is not pale. Findings: No rash. Neurological: Mental Status: She is alert and oriented to person, place, and time. Cranial Nerves: No cranial nerve deficit. Coordination: Coordination normal. Psychiatric: Mood and Affect: Mood and affect normal. Behavior: Behavior normal. Thought Content: Thought content normal. Judgment: Judgment normal. Imaging obtained was reviewed and independently interpreted. Procedures Procedures * Kapil Caldera RN - 12/25/2021 1217 EDT Pt presents to Ed with c/o of rt ankle pain after rolling ankle while at work. Pt notes playing basketball with pt. Pt notes pain at 5or 6/10. Edema noted to right ankle documented in this encounter Plan of Treatment Not on file documented as of this encounter Procedures Procedure Name Priority Date/Time Associated Diagnosis Comments XR ANKLE RIGHT 3 OR MORE VIEWS STAT 12/25/2021 12:42 EDT documented in this encounter Results * XR ANKLE RIGHT 3 OR MORE VIEWS (12/25/2021 12:42 EDT) Anatomical Region Laterality Modality Lower Extremities, Ankle Right Compute d Radiography 12/25/2021 12:3 5 EDT Impressions 12/25/2021 13:20 EDT Lateral soft tissue swelling without acute fracture or dislocation identified. May consider follow-up in 7 to 10 days or correlation with MRI if symptoms persist. THIS DOCUMENT HAS BEEN ELECTRONICALLY SIGNED BY RAVINDER CARVER MD FOR ANY QUESTIONS OR CONCERNS REGARDING THIS REPORT PLEASE CALL [facility] AT [phone] Narrative 12/25/2021 13:20 EDT PROCEDURE INFORMATION: Exam: XR Right Ankle Exam date and time: 12/25/2021 12:35 PM Age: 41 years old Clinical indication: Injury or trauma; Fall; Blunt trauma; Ankle; Right; Additional info: Ankle pain and swelling after rolling ankle TECHNIQUE: Imaging protocol: Radiologic exam of the Right ankle. Views: 3 or more views. COMPARISON: CR ANKLE AP 10/13/2015 11:04 AM FINDINGS: Bones/joints: No acute fracture or dislocation is identified. The ankle mortise is preserved on these nonstressed views. Soft tissues: The soft tissues are swollen laterally. Procedure Note Ravinder Carver MD - 12/25/2021 PROCEDURE INFORMATION: Exam: XR Right Ankle Exam date and time: 12/25/2021 12:35 PM Age: 41 years old Clinical indication: Injury or trauma; Fall; Blunt trauma; Ankle; Right; Additional info: Ankle pain and swelling after rolling ankle TECHNIQUE: Imaging protocol: Radiologic exam of the Right ankle. Views: 3 or more views. COMPARISON: CR ANKLE AP 10/13/2015 11:04 AM FINDINGS: Bones/joints: No acute fracture or dislocation is identified. The ankle mortise is preserved on these nonstressed views. Soft tissues: The soft tissues are swollen laterally. IMPRESSION Lateral soft tissue swelling without acute fracture or dislocation identified. May consider follow-up in 7 to 10 days or correlation with MRI if symptoms persist. THIS DOCUMENT HAS BEEN ELECTRONICALLY SIGNED BY RAVINDER CARVER MD FOR ANY QUESTIONS OR CONCERNS REGARDING THIS REPORT PLEASE CALL [facility] [phone] us Edis Lovett MD IMG DIAGNOSTIC IMAGING ORDERABLE S Final Result documented in this encounter Visit Diagnoses Diagnosis Sprain of right ankle, unspecified ligament, initial encounter- Primary documented in this encounter Administered Medications Inactive Administered Medications - up to 3 most recent administrations Medication Order MAR Action Action Date Dose Rate Site acetaminophen (TYLENOL) tablet 975 mg 975 mg (rounded from 1,000 mg), oral, NOW X1, 1 dose, On 12/25/21 at 1330, Routine Given 12/25/2021 13:23 EDT 975 mg documented in this encounter Active and Recently Administered Medications Times are shown in EDT. Scheduled Medication Order 12/23/2021 12/24/2021 12/25/2021 acetaminophen (TYLENOL) tablet 975 mg (COMPLETED) 975 mg (rounded from 1,000 mg), oral, NOW X1, 1 dose, On 12/25/21 at 1330, Routine 1323 (Given - Provid er: Martha Patten RN) documented in this encounter Orders Medications Ordered That Josh ht Not Have Been Administered Count Last Ordered Date First Ordered Date acetaminophen (TYLENOL) tablet 975 mg 1 documented in this encounter Care Teams Screen Writer Relationship Specialty Start Date End Date Annbael Gonzalez FNP [address] [place] [address] [address] [place] [phone] PCP - General 02/22/21 06/16/22 documented as of this encounter
--- OUTSIDE RECORDS SUMMARY | 2024-02-14 15:30 | XMS_ITS | Encounter Summary ---
Author Organization [facility] Address [address] [place] [address] Care Team Providers Care Rejogger Name Role Phone Deyanira Valentino MD Primary Care Provider [phone] Reason for Visit * Reason Onset Date Comments Blood Glucose Review 06/28/2017 Encounter Details Date Type Department Care Team (Late st Contact Info) Description 06/28/2017 Telephone [facility] Endocrinology - [facility] [address] [place] [address] Moustapha Melendez DO [address] [place] [address] Blood Glucose Review Social History Tobacco Use Types Packs/Day Years Used Date Smoking Tobacco: Never Assessed Comments Unknown Sex and Gender Information Value Date Recorded Sex Assigned at Not on file Legal Sex Female 18:06 EST Gender Identity Female 02/16/2019 15:00 EST Sexual Orientation Not on file documented as of this encounter Miscellaneous Notes * Telephone Encounter - Donya Torres V. - 10/11/2017 1320 EDT f documented in this encounter Plan of Treatment Not on file documented as of this encounter Visit Diagnoses Not on filedocumented in this encounter Care Teams Rejogger Relationship Specialty Start Date End Date Deyanira Valentino MD [address] [place] [id number] PCP - General 12/09/09 02/21/21 documented as of this encounter
--- OUTSIDE RECORDS SUMMARY | 2024-02-14 15:30 | XMS_ITS | Encounter Summary ---
Author Organization [facility] Address [address] [place] [address] Care Team Providers Care Dissolver Operator Name Role Phone [facility], Ramón Primary Care Provider [phone] Encounter Details Date Type Department Care Team (Late st Contact Info) Description 06/17/2022 Orders Only [facility] [place] [facility] [place] [address] [place], [place] [id number] Nicole Jasso RN Social History Tobacco Use Types Packs/Day Years [...] suspected to have Coronavirus/COVID-19? No / Unsure 06/17/2022 15:51 EDT documented as of this encounter Functional Status * Are you deaf or do you have serious difficulty hearing? Answer Date of Assessment Author No 06/17/2022 16:15 EDT William Sadler , ANTHONY documented as of this encounter Plan of Treatment Not on file documented as of this encounter Visit Diagnoses Not on filedocumented in this encounter Care Teams Dissolver Operator Relationship Specialty Start Date End Date [facility] [address] [place] [address] PCP - General 06/17/22 documented as of this encounter
--- OUTSIDE RECORDS SUMMARY | 2024-02-14 15:30 | XMS_ITS | Encounter Summary ---
Author Organization [facility] Address [address] [place] [address] Care Team Providers Care Fire Control Technician B Name Role Phone Deyanira Valentino MD Primary Care Provider [phone] Encounter Details Date Type Department Care Team (Late st Contact Info) Description 09/18/2014 Historical Results Only [facility] - [facility] [place] Radiology Results [address] [place], [place] [id number] Les Benjamin DO [address] [place] [address] Social History Tobacco Use Types Packs/Day Years [...] Name Priority Date/Time Associated Diagnosis Comments XR CHEST 2 VIEWS 09/18/2014 14:3 2 EDT documented in this encounter Results * XR CHEST 2 VIEWS (09/18/2014 14:32 EDT) Anatomical Region Laterality Modality Other 09/18/2014 14:3 2 EDT Narrative 09/18/2014 14:37 EDT ? EXAM: RADIOLOGY/CHEST (PA ?? LAT) ?EX. D/ (1420) ? CLINICAL INFORMATION: ? CHEST PAIN ? Indication: Chest pain. Dizziness. ? Comparison: None. ? Technique: Upright PA and lateral views. ? Findings: The cardiomediastinal silhouette and pulmonary vasculature ? are within normal limits. The lungs are clear. No pleural effusion or ? pneumothorax is seen. ? Impression: No acute process. ? REPORT SIGNED IN OTHER VENDOR SYSTEM 09/18/2014 ?Reported By: Hal Larson MD ? CC: ? Transcribed Date/Time: 09/18/2014 (0940) ? Shear Scrapman: ? Printed Date/Time: 08/12/2018 (0892) ? PAGE 1 ? Signed Report ? Procedure Note Hal Larson MD - 01/07/2019 EXAM: RADIOLOGY/CHEST (PA LAT) EX. D/ (1420) CLINICAL INFORMATION: CHEST PAIN Indication: Chest pain. Dizziness. Comparison: None. Technique: Upright PA and lateral views. Findings: The cardiomediastinal silhouette and pulmonaryvasculature are within normal limits. The lungs are clear. No pleural effusionor pneumothorax is seen. Impression: No acute process. REPORT SIGNED IN OTHER VENDOR SYSTEM 09/18/2014 Reported By: Hal Larson MD CC: Transcribed Date/Time: 09/18/2014 (6932) Shear Scrapman: HIS.[email or web address] Printed Date/Time: 08/12/2018 (7346) PAGE 1 Signed Report us Les Benjamin DO IMG DIAGNOSTIC IMAGING ORDERAB LES Final Result documented in this encounter Visit Diagnoses Not on filedocumented in this encounter Care Teams Fire Control Technician B Relationship Specialty Start Date End Date Deyanira Valentino MD [address] [place] [address] PCP - General 12/09/09 02/21/21 documented as of this encounter
--- OUTSIDE RECORDS SUMMARY | 2024-02-14 15:30 | XMS_ITS | Encounter Summary ---
Author Organization [facility] Address [address] [place] [address] Care Team Providers Care Radio Announcer Name Role Phone Deyanira Valentino MD Primary Care Provider [phone] Reason for Visit * Reason Onset Date Comments Appointment Related 01/27/2019 Encounter Details Date Type Department Care Team (Late st Contact Info) Description 01/27/[address] [facility] [place] [facility] [place] - [address] [address] Beatriz Oliver PA-C [address] [place] [phone] Appointment Related Social History Tobacco Use Types Packs/Day Years Used Date Smoking Tobacco: Never Assessed Comments Unknown Sex and Gender Information Value Date Recorded Sex Assigned at Not on file Legal Sex Female 18:06 EST Gender Identity Female 02/16/2019 15:00 EST Sexual Orientation Not on file documented as of this encounter Miscellaneous Notes * Telephone Encounter - Jania Coleman - 02/10/2019 1209 EST Patient called back and scheduled follow up for 02/19/19 * Telephone Encounter - Jania Coleman - 01/27/2019 1733 EST Patient sent an email asking if work restrictions could be updated, and asking for paperwork filledout for [employer]. I sent a reply asking patient to call the office. She was a no show at last visit 12/26/18 and never called back to reschedule. documented in this encounter Plan of Treatment Not on file documented as of this encounter Visit Diagnoses Not on filedocumented in this encounter Care Teams Radio Announcer Relationship Specialty Start Date End Date Deyanira Valentino MD [address] [place] [address] PCP - General 12/09/09 02/21/21 documented as of this encounter
--- OUTSIDE RECORDS SUMMARY | 2024-02-14 15:30 | XMS_ITS | Encounter Summary ---
Author Organization [facility] Address [address] [place] [address] Care Team Providers Care Billiard Player Name Role Phone Annabel Gonzalez ASMITA Primary Care Provider [phone] Encounter Details Date Type Department Care Team (Latest Contact Info) Description 01/11/2022 Transcribe Orders [facility] - Main [place] [address] [place] [address] Reynold Hollis MD [address] [facility] [address] [place] [address] Attention deficit hyperactivity disorder, combined type (Primary Dx); Current episode of major depressive disorder without prior episode, unspecified depression episode severity; Familial combined hyperlipidemia Social History Tobacco Use Types Packs/Day Years [...] 12:15 EDT documented as of this encounter Functional Status * Are you deaf or do you have serious difficulty hearing? Answer Date of Assessment Author No 12/25/2021 12:11 Kapil Petty RN documented as of this encounter Plan of Treatment Not on file documented as of this encounter Procedures Procedure Name Priority Date/Time Associated Diagnosis Comments BASIC METABOLIC PANEL (BMP) Routine 04/17/2022 8:51 EST Attention deficit hyperactivity disorder, combined type Current episode of major depressive disorder without prior episode, unspecified depression episode severity Familial combined hyperlipidemia documented in this encounter Results * (ABNORMAL) LIPID PROFILE (INCLUDES CHOLESTEROL, TRIGLYCERIDES, HDL, LDL) (04/17/2022 8:51 EST) Cholesterol 308(H) <200 mg/dL 04/17/2022 10:34 [facility] Comment:Note that therapeuti c goals will differ between patients based on cardiac risk factors and current medical therapy. HDL 69 >=50 mg/dL 04/17/2022 10:34 [facility] Comment:Note that therapeuti c goals will differ between patients based on cardiac risk factors and current medical therapy. LDL, Calculated 222(H) <160 mg/dL 10:34 [facility] Comment:Note that therapeuti c goals will differ between patients based on cardiac risk factors and current medical therapy. Triglyceride 83 <=150 mg/dL 04/17/2022 10:34 [facility] Comment:Note that therapeuti c goals will differ between patients based on cardiac risk factors and current medical therapy. Chol/HDL Ratio 4.5 See Note 04/17/2022 10:34 [facility] Comment: NOTE: Desirable Ratio = <4.1 Patient At Risk Ratio = >5.0(Males) ?>6.0(Females) Non HDL Cholesterol 239(H) <160 mg/dL 04/17/2022 10:34 [facility] Comment:Note that therapeuti c goals will differ between patients based on cardiac risk factors and current medical therapy. Blood VENOUS BLOOD / Unknown Venipuncture / Unknown 04/17/2022 8:51 EST 04/17/2022 10:01 EST us Reynold Hollis MD CHEMISTRY & BLOOD GAS ORDERABLES Final Result [facility] [address] [place] [address] * BASIC METABOLIC PANEL (BMP) (04/17/2022 8:51 EST) Sodium 143 136 - 145 mmol/L 04/17/2022 10:34 [facility] Potassium 4.5 3.5 - 5.0 mmol/L 04/17/2022 10:34 [facility] Chloride 105 96 - 110 mmol/L 04/17/2022 10:34 [facility] CO2 Total 24 22 - 32 mmol/L 04/17/2022 10:34 [facility] Anion Gap 14 5 - 14 04/17/2022 10:34 [facility] Glucose 97 70 - 100 mg/dL 04/17/2022 10:34 [facility] Calcium 9.8 8.5 - 10.5 mg/dL 04/17/2022 10:34 [facility] BUN 12 10 - 26 mg/dL 04/17/2022 10:34 [facility] Creatinine 0.78 0.52 - 1.04 mg/dL 04/17/2022 10:34 [facility] eGFR 97 >60 mL/min/1.73 m2 04/17/2022 10:34 [facility] Blood VENOUS BLOOD / Unknown Venipuncture / Unknown 04/17/2022 8:51 EST 04/17/2022 10:01 EST Reynold Hollis MD CHEMISTRY & BLOOD GAS ORDERABLES Final Result [facility] [address] [place] [address] documented in this encounter Visit Diagnoses Diagnosis Attention deficit hyperactivity disorder, combined type- Primary Attention deficit disorder with hyperactivity Current episode of major depressive disorder without prior episode, unspecified depression episode severity Familial combined hyperlipidemia Mixed hyperlipidemia documented in this encounter Care Teams Billiard Player Relationship Specialty Start Date End Date Annabel Gonzalez FNP [address] [address] PCP - General 02/22/21 06/16/22 documented as of this encounter
--- OUTSIDE RECORDS SUMMARY | 2024-02-14 15:30 | XMS_ITS | Encounter Summary ---
Author Organization [facility] Address [address] [place] [address] Care Team Providers Care Hydraulic Modeling Engineer Name Role Phone Deyanira Valentino MD Primary Care Provider [phone] Encounter Details Date Type Department Care Team (Late st Contact Info) Description 03/14/2011 Results Only [facility] [phone] Miki Alex APRN [address] [place] [address] [address] [place] [address] Social History Tobacco Use Types Packs/Day Years [...] Procedure Name Priority Date/Time Associated Diagnosis Comments PAP TEST- RESULT ONLY Routine 03/14/2011 0:00 EST documented in this encounter Results * PAP TEST- RESULT ONLY (03/14/2011 0:00 EST) Pathology Report: CYTOPATHOLOGY REPORT Reports generated via electronic interface contain original data; however they are lacking the format of the original report. Caution should be taken when reading/interpreti ng unformatted reports. Name: ? SUSY VITALE ? Accession #: ? [id number] : ? 1980 (Age: 30) ??F ?Collect Date: ? 03/14/2011 Location: ? [facility] ? Receive Date: ? 03/15/2011 Provider: ?MIKI [facility] REC[employer] MANAGEMENT OFFICER Copy to: ? Specimen/Source: ?Pap Test, Cervix/Endocervix, ThinPrep Imaging System with manual evaluation Last Menstrual Period: ? 03/05/11 Hormonal/Contracep tive Status: ? Intrauterine device: Paragard Other: ? Additional clinical information: Medical Stenographer clinical & treatment hx:normal ? SPECIMEN ADEQUACY ? Satisfactory for Evaluation - transformation zone component present GENERAL CATEGORIZATION ? Negative for Intraepithelial Lesion or Malignancy INTERPRETATION ? Reactive cellular changes associated with inflammation present (includes repair). Shift in jacqui present suggestive of bacterial vaginosis. ? Document reviewed and electronically signed by: ? LACEY ORTIZ MD ? Report Date: ??03/17/2011 11:26 End of Report [facility] 03/14/2011 03/15/2011 us Miki Alex CLINIC LICENSED PRACTICAL NURSE PATHOLOGY ORDERABLES Final Resu lt [facility] [address] [place] [address] documented in this encounter Visit Diagnoses Not on filedocumented in this encounter Care Teams Hydraulic Modeling Engineer Relationship Specialty Start Date End Date Deyanira Valentino MD [address] [place] [address] PCP - General 12/09/09 02/21/21 documented as of this encounter
--- OUTSIDE RECORDS SUMMARY | 2024-02-14 15:30 | XMS_ITS | Encounter Summary ---
Author Organization [facility] Address [address] [place] [address] Care Team Providers Care Cfa Name Role Phone Annabel Gonzalez ASMITA Primary Care Provider Encounter Details Date Type Department Care Team (Late st Contact Info) Description 04/17/2022 8:45 EST Phlebotomy Only [facility] - Outpatient Phlebotomy Drawing [address] [place] [address] Lab, [facility] [place] Attention deficit hyperactivity disorder, combined type; Current episode of major depressive disorder without [...] on file documented as of this encounter Functional Status * Are you deaf or do you have serious difficulty hearing? Answer Date of Assessment Author No 12/25/2021 12:11 Kapil Petty RN documented as of this encounter Plan of Treatment Not on file documented as of this encounter Procedures Procedure Name Priority Date/Time Associated Diagnosis Comments LIPID PROFILE (INCLUDES CHOLESTEROL, TRIGLYCERIDES, HDL, LDL) Routine 04/17/2022 8:51 EST Attention deficit hyperactivity disorder, combined type Current episode of major depressive disorder without prior episode, unspecified depression episode severity Familial combined hyperlipidemia documented in this encounter Results * (ABNORMAL) LIPID PROFILE (INCLUDES CHOLESTEROL, TRIGLYCERIDES, HDL, LDL) (04/17/2022 8:51 EST) Cholesterol 308(H) <200 mg/dL 04/17/2022 10:34 [facility] Comment:Note that therapeuti c goals will differ between patients based on cardiac risk factors and current medical therapy. HDL 69 >=50 mg/dL 04/17/2022 10:34 [facility] Comment:Note that therapeuti c goals will differ between patients based on cardiac risk factors and current medical therapy. LDL, Calculated 222(H) <160 mg/dL 10:34 [facility] Comment:Note that therapeuti c goals will differ between patients based on cardiac risk factors and current medical therapy. Triglyceride 83 <=150 mg/dL 04/17/2022 10:34 [facility] Comment:Note that therapeuti c goals will differ between patients based on cardiac risk factors and current medical therapy. Chol/HDL Ratio 4.5 See Note 04/17/2022 10:34 [facility] Comment: NOTE: Desirable Ratio = <4.1 Patient At Risk Ratio = >5.0(Males) ?>6.0(Females) Non HDL Cholesterol 239(H) <160 mg/dL 04/17/2022 10:34 [facility] Comment:Note that therapeuti c goals will differ between patients based on cardiac risk factors and current medical therapy. Blood VENOUS BLOOD / Unknown Venipuncture / Unknown 04/17/2022 8:51 EST 04/17/2022 10:01 EST us Reynold Hollis MD CHEMISTRY & BLOOD GAS ORDERABLES Final Result [facility] [address] [place] [address] documented in this encounter Visit Diagnoses Diagnosis Attention deficit hyperactivity disorder, combined type Attention deficit disorder with hyperactivity Current episode of major depressive disorder without prior episode, unspecified depression episode severity Familial combined hyperlipidemia Mixed hyperlipidemia documented in this encounter Care Teams Cfa Relationship Specialty Start Date End Date Annabel Gonzalez FNP [address] [facility] [address] [place] [address] PCP - General 02/22/21 06/16/22 documented as of this encounter
--- OUTSIDE RECORDS SUMMARY | 2024-02-14 15:30 | XMS_ITS | Encounter Summary ---
Author Organization [facility] Address [address] [place] [address] Care Team Providers Care Refractory Tile Helper Name Role Phone Unavailable Primary Care Provider Unavailabl e Encounter Details Date Type Department Care Team (Late st Contact Info) Description 12/06/2009 Results Only [facility] [phone] Alexandr Taveras MD [address] [address] Social History Tobacco Use Types Packs/Day Years [...] Procedure Name Priority Date/Time Associated Diagnosis Comments CYTOPATHOLOGY Routine 12/06/2009 0:00 EDT documented in this encounter Results * CYTOPATHOLOGY (12/06/2009 0:00 EDT) Pathology Report: CYTOPATHOLOGY REPORT ? Reports generated via electronic interface contain original data; ? however they are lacking the format of the original report. ? Caution should be taken when reading/interpreti ng unformatted reports. ? Name: ? VITALE, SUSY ? Accession #: ? [id number] ? : ? 1980 (Age: 29) ??F ?Collect Date: ? 12/06/2009 ? Location: ? [facility] ? Receive Date: ? 12/07/2009 ? Provider: ? ALEXANDR NISBET MD ? Copy to: ? CYTOLOGIC DIAGNOSIS: ? Urine, catheterized, cytologic evaluation: ? - Negative for malignant cells. ? Document reviewed and electronically signed by: ? GENOVEVA COPPOLA MD ? Report Date: ??12/08/2009 11:18 ? By the signature above, the attending physician certifies that he/she has ? personally conducted a gross and/or microscopic examination of the described ? specimens and rendered or confirmed the above diagnosis. ? Specimen Type: ? Urine, Catheterized ? Clinical History: ? Hematuria ? Gross Description: ? One vial of Cytolyt was received and processed by selective cellular ? enhancement technique. ? End of Report ? [facility] 12/06/2009 12/07/2009 8:2 4 EDT us Alexandr Taveras MD PATHOLOGY ORDERABLES Final Re sult Performing Organization Address City/State/[facility] Co de Phone Number [facility] [address] [place] [address] documented in this encounter Visit Diagnoses Not on filedocumented in this encounter
--- OUTSIDE RECORDS SUMMARY | 2024-02-14 15:30 | XMS_ITS | Referral Summary ---
Author Organization [facility] Address [address] [place] [address] Care Team Providers Care Diamond Picker Name Role Phone [facility], Primary Care Provider [phone] Allergies Active Allergy Reactions Criticality Noted Date [...] 15:00 EST Sexual Orientation Not on file Last Filed Vital Signs Vital Sign Reading [...] Body Mass Index 33.59 12/25/2021 1215 EDT Functional Status * Are you deaf or do you have serious difficulty hearing? Answer Date of Assessment Author No 06/17/2022 16:15 EDT William Sadler RN Plan of Treatment Not on file Procedures Procedure Name Priority Date/Time Associated Diagnosis Comments HEPATITIS C AB W REFLEX TO HCV RNA BY PCR STAT 06/17/2022 16:03 EDT from Last 3 Months or Most Recently Relevant to Health Maintenance Results * HEPATITIS C AB W REFLEX TO HCV RNA BY PCR (06/17/2022 16:03 EDT) Hep C Antibody Negative Negative 06/17/2022 17:[address] [facility] Blood VENOUS BLOOD / Unknown Venipuncture / Unknown 06/17/2022 16:03 EDT 06/17/2022 16:07 EDT Abhilash Richardson PA-C CHEMISTRY & BLOOD GAS ORDERABLES Final Result Performing Organization Address City/State/[facility] Co de Phone Number [facility] [address] [place] [phone] from Last 3 Months or Most Recently Relevant to Health Maintenance [place] [place] [address] [facility] , [address] [place] [address] Care Teams Diamond Picker Relationship Specialty Start Date End Date [facility], [facility] [place] [address] PCP - General 06/17/22
--- OUTSIDE RECORDS SUMMARY | 2024-02-14 15:30 | XMS_ITS | Encounter Summary ---
Author Organization [facility] Address [address] [place] [address] Care Team Providers Care Chief Building Inspector Name Role Phone Annabel Gonzalez Primary Care Provider [phone] Encounter Details Date Type Department Care Team (Latest Contact Info) Description 12/25/2021 Travel Social History Tobacco Use Types Packs/Day Years [...] Caldera RN documented as of this encounter Plan of Treatment Not on file documented as of this encounter Visit Diagnoses Not on filedocumented in this encounter Care Teams Chief Building Inspector Relationship Specialty Start Date End Date Annabel Gonzalez FNP [address] [facility] [address] [place] [phone] PCP - General 02/22/21 06/16/22 documented as of this encounter
--- OUTSIDE RECORDS SUMMARY | 2024-02-14 15:30 | XMS_ITS | Encounter Summary ---
Author Organization [facility] Address [address] [place] [address] Care Team Providers Care Plasterer Journeyman Name Role Phone [facility] Primary [facility] Provider [phone] Reason for Visit * Reason Comments Body Fluid Exposure IPP MHT had patient' s blood splash in her eyes during a restraint process. She immediately flushed her eyes after the event. Encounter Details Date Type Department Care Team (Late st Contact Info) Description 06/17/2022 15:49 EDT - 06/17/2022 16:21 EDT Emergency [facility] Emergency Department [address] [place] [address] Abhilash Richardson PA-C [address] [place] [address] Exposure to body fluid (Primary Dx) Discharge Disposition: Home or Self [...] 15:51 EDT documented as of this encounter Last Filed Vital Signs Vital Sign Reading Time Taken Comments Blood Pressure 128/93 06/17/2022 1553 EDT Pulse 86 06/17/2022 1553 EDT Temperature 36.7 ??C (98 ??F) 06/17/2022 1553 EDT Respiratory Rate 14 06/17/2022 1553 EDT Oxygen Saturation 98% 06/17/2022 1553 EDT Inhaled Oxygen Concentration - - Weight - - Height - - Body Mass Index - - documented in this encounter Functional Status * Are you deaf or do you have serious difficulty hearing? Answer Date of Assessment Author No 06/17/2022 16:15 EDT William Sadler RN documented as of this encounter Discharge Instructions * Discharge Instructions* Abhilash Richardson PA-C - 06/17/2022 16:09 EDT You were seen today for body fluid exposure. The likelihood of any transmission is extremely low. We do not recommend any initiation of prophylaxis at this time. We do recommend following up closely with the employee health clinic. Call on Sunday to discuss today's visit and laboratory results. * Attachments The following attachments cannot be sent through Care Everywhere. * Exposure: Blood and Body Fluids (Urdu) documented in this encounter Medications at Time of Discharge citalopram (CELEXA) 10 mg tablet Take 10 mg by mouth daily. documented as of this encounter Discharge Disposition Disposition Code Departure Means Destination Home or Self Alf documented in this encounter ED Notes * Abhilash Richardson PA-C - 06/17/2022 1601 EDT Emergency Department Visit Medical Decision Making 41-year-old female presenting to the emergency department after incurring exposure to body fluids while attempting to restrain a patient in the psychiatric unit. Patient reports having blood splattered in her eyes. She was able to flush out eyes for about 10 minutes after the event quelled. She arrives for postexposure labs to be drawn. I do not recommend any prophylactic treatment at this time and patient will follow-up closely with [facility] next week. Relevant Data as of 06/20/221426 e Jun 20, 2022 1427 Hep C Ab w Rfx PCR: Negative [] 1426 HIV 1 and 2 Antibody/p24 Antigen, 4th Generation: Negative [] 1426 Hep Bs AB,Quant: 0.0 [] Relevant Data User Index [] Abhilash Richardson PA-C Laboratory data was reviewed. Medical Decision Making Exposure to body fluid: acute illness or injury Amount and/or Complexity of Data Reviewed Labs: ordered. Final diagnoses: Exposure to body fluid Disposition: Discharged Chief complaint: Body fluid exposure HPI Irma Lombardi is a 41 y.o. female who presents to the ED due to body fluid exposure from a patientin IPP. She states that she was caring for in inpatient psychiatry unit who was bleeding from the forehead and thrashing her head around. Irma incurred blood in her eyes from the psychiatric patient. After 15 minutes of restraining the patient she was able to flush out her eyes with water for approximately 10 minutes. History was provided by: Patient Records reviewed include: Note dated 12/25/[address] Lovett Patient's pertinent PMH, FH, SH were reviewed and edited as necessary. Nursing notes reviewed. A medical screening exam was performed. Physical Exam BP (!) 128/93 (BP Cuff Location: Right arm, BP Patient Position: Sitting) Pulse 86 Temp 36.7 ??C (98 ??F) (Oral) Resp 14 SpO2 98% Physical Exam Vitals and nursing note reviewed. Constitutional: General: She is not in acute distress. Appearance: Normal appearance. HENT: Head: Normocephalic and atraumatic. Nose: Nose normal. Mouth/Throat: Mouth: Mucous membranes are moist. Eyes: Extraocular Movements: Extraocular movements intact. Conjunctiva/sclera: Conjunctivae normal. Cardiovascular: Rate and Rhythm: Normal rate. Pulses: Normal pulses. Pulmonary: Effort: Pulmonary effort is normal. No respiratory distress. Musculoskeletal: General: Normal range of motion. Cervical back: Normal range of motion and neck supple. Skin: General: Skin is warm and dry. Neurological: General: No focal deficit present. Mental Status: She is alert and oriented to person, place, and time. Psychiatric: Mood and Affect: Mood normal. Behavior: Behavior normal. Procedures Procedures documented in this encounter Plan of Treatment Not on file documented as of this encounter Procedures Procedure Name Priority Date/Time Associated Diagnosis Comments HEPATITIS C AB W REFLEX TO HCV RNA BY PCR STAT 06/17/2022 16:03 EDT HEPATITIS B SURFACE ANTIBODY STAT 06/17/2022 16:03 EDT HIV 1/2 ANTIGEN AND ANTIBODY, 4TH GENERATION STAT 06/17/2022 16:03 EDT documented in this encounter Results * HEPATITIS B SURFACE ANTIBODY (06/17/2022 16:03 EDT) Hep B Surface Ab, Quantitative 0.0 See Note mIU/mL 06/17/2022 17:35 EDT [facility] Comment: Clinical Interpretation of Immune Status: [...] Unknown 06/17/2022 16:03 EDT 06/17/2022 16:07 EDT us Abhilash Richardson PA-C CHEMISTRY & BLOOD GAS ORDERABLES Final Result [facility] [address] [place] [address] * HEPATITIS C AB W REFLEX TO HCV RNA BY PCR (06/17/2022 16:03 EDT) Hep C Antibody Negative Negative 06/17/2022 17:35 EDT [facility] Blood VENOUS BLOOD / Unknown Venipuncture / Unknown 06/17/2022 16:03 EDT 06/17/2022 16:07 EDT us Abhilash Richardson PA-C CHEMISTRY & BLOOD GAS ORDERABLES Final Result Performing Organization Address [facility] Co de Phone Number [facility] [address] [place] [id number] * HIV 1/2 ANTIGEN AND ANTIBODY, 4TH GENERATION (06/17/2022 16:03 EDT) HIV 1 and 2 Antibody/p24 Antigen, 4th Generation Negative Negative 06/17/2022 17:28 EDT [facility] Comment:If acute HIV-1 infec tion is suspected in a high risk patient, submit plasma specimen for HIV-1 RNA quantitation test. Blood VENOUS BLOOD / Unknown Venipuncture / Unknown 06/17/2022 16:03 EDT 06/17/2022 16:07 EDT us Abhilash Richardson PA-C IMMUNOLOGY AND SEROLOGY ORDERABL ES Final Result Performing Organization Address [facility] Co de Phone Number [facility] [address] [place] [address] documented in this encounter Visit Diagnoses Diagnosis Exposure to body fluid- Primary documented in this encounter Care Teams Plasterer Journeyman Relationship Specialty Start Date End Date [facility] [address] [place] [address] PCP - General 06/17/22 documented as of this encounter
--- OUTSIDE RECORDS SUMMARY | 2024-02-14 15:30 | XMS_ITS | Encounter Summary ---
Author Organization [facility] Address [address] [place] [address] Care Team Providers Care Bowling Teacher Name Role Phone [facility] Primary Care Provider [phone] Encounter Details Date Type Department Care Team (Latest Contact Info) Description 06/17/2022 Travel Social History Tobacco Use Types Packs/Day [...] Sadler RN documented as of this encounter Plan of Treatment Not on file documented as of this encounter Visit Diagnoses Not on filedocumented in this encounter Care Teams Bowling Teacher Relationship Specialty Start Date End Date [facility] [address] [place], [place] [address] PCP - General 06/17/22 documented as of this encounter
--- OUTSIDE RECORDS SUMMARY | 2024-02-14 15:30 | XMS_ITS | Encounter Summary ---
Author Organization [facility] Address [address] [place] [address] Care Team Providers Care Medical Unit Secretary Name Role Phone Unavailable Primary Care Provider Unavailabl e Encounter Details Date Type Department Care Team (Late st Contact Info) Description 05/18/2004 Results Only [facility] [address] [place] [address] [place] [address] Social History Tobacco Use Types Packs/Day Years [...] Priority Date/Time Associated Diagnosis Comments CYTOPATHOLOGY Routine 05/18/2004 0:00 EST documented in this encounter Results * CYTOPATHOLOGY (05/18/2004 0:00 EST) Pathology Report: CYTOPATHOLOGY REPORT Reports generated via electronic interface contain original data; however they are lacking the format of the original report. Caution should be taken when reading/interpreti ng unformatted reports. Name: ? SUSY VITALE ? Accession #: ? [id number] : ? 1980 (Age: 23) ??F ?Collect Date: ? 05/18/2004 Location: ? [facility] ? Receive Date: ? 05/20/2004 Provider: ?KATHLEEN DANGELO CNM Copy to: ? Specimen/Source: ?ThinPrep Pap Test, Cervix/Endocervix Last Menstrual Period: ? 05/10/04 Menstrual/Pregnanc y Status: ? Post Other: ? HPVA - HPV testing requested if ASC-US on the current ThinPrep Pap test. ? SPECIMEN ADEQUACY ? Satisfactory for Evaluation - transformation zone component present GENERAL CATEGORIZATION ? Negative for Intraepithelial Lesion or Malignancy ? Document reviewed and electronically signed by: ? LONDON Suggs(ASCP) ? Report Date: ??05/24/2004 13:27 End of Report [facility] 05/18/2004 05/20/2004 Kathleen Dangelo CNM PATHOLOGY ORDERABLES Final Res ult [facility] [address] [place] [address] documented in this encounter Visit Diagnoses Not on filedocumented in this encounter
--- OUTSIDE RECORDS SUMMARY | 2024-02-14 15:30 | XMS_ITS | Encounter Summary ---
Author Organization [facility] Address [address] [place] [address] Care Team Providers Care Cad Intern Name Role Phone Deyanira Valentino MD Primary Care Provider [phone] Encounter Details Date Type Department Care Team (Late st Contact Info) Description 10/13/2015 Historical Results Only [facility] Radiology Results [address] [place] [address] Yosvany Epps MD Social History Tobacco Use Types Packs/Day Years [...] XR ANKLE RIGHT 3 OR MORE VIEWS 10/13/2015 11:25 EDT documented in this encounter Results * XR ANKLE RIGHT 3 OR MORE VIEWS (10/13/2015 11:25 EDT) Anatomical Region Laterality Modality Lower Extremities, Ankle Right Other 10/13/2015 11:2 5 EDT Narrative 10/13/2015 11:30 EDT ? EXAM: RADIOLOGY/ANKLE RIGHT-3 + VIEW ?EX. D/ (0227) ? CLINICAL INFORMATION: ? PAIN ? ANKLE RIGHT-3 + VIEW ??10/13/2015 11:17 AM ? CLINICAL HISTORY/COMMENTS: PAIN. RT ANKLE INJ ? COMPARISON: None available. ? FINDINGS: 3 views of the right ankle were obtained. The bones are in ? appropriate alignment with no fractures or dislocations. The ankle ? mortise is congruent. There is a moderate ankle joint effusion. The ? overlying soft tissues are otherwise unremarkable. ? IMPRESSION: ? 1. No acute fracture or dislocation. ? 2. Moderate ankle joint effusion. ? REPORT SIGNED IN OTHER VENDOR SYSTEM 10/13/2015 ?Reported By: Arnulfo Barnard MD ? CC: ? Transcribed Date/Time: 10/13/2015 (1130) ? Vat Skimmer: ? Printed Date/Time: 08/16/2018 (0731) ? PAGE 1 ? Signed Report ? Procedure Note Arnulfo Barnard MD - 01/08/2019 EXAM: RADIOLOGY/ANKLE RIGHT-3 + VIEW EX. D/ (1117) CLINICAL INFORMATION: PAIN ANKLE RIGHT-3 + VIEW 10/13/2015 11:17 AM CLINICAL HISTORY/COMMENTS: PAIN. RT ANKLE INJ COMPARISON: None available. FINDINGS: 3 views of the right ankle were obtained. The bones arein appropriate alignment with no fractures or dislocations. The ankle mortise is congruent. There is a moderate ankle joint effusion. The overlying soft tissues are otherwise unremarkable. IMPRESSION: 1. No acute fracture or dislocation. 2. Moderate ankle joint effusion. REPORT SIGNED IN OTHER VENDOR SYSTEM 10/13/2015 Reported By: Arnulfo Barnard MD CC: Transcribed Date/Time: 10/13/2015 (1130) Vat Skimmer: Printed Date/Time: 08/16/2018 (3700) PAGE 1 Signed Report us Yosvany Epps MD IMG DIAGNOSTIC IMAGING ORDERABL ES Final Result documented in this encounter Visit Diagnoses Not on filedocumented in this encounter Care Teams Cad Intern Relationship Specialty Start Date End Date Deyanira Valentino MD [address] [place] [address] PCP - General 12/09/09 02/21/21 documented as of this encounter
--- OUTSIDE RECORDS SUMMARY | 2024-02-14 15:30 | XMS_ITS | Encounter Summary ---
Author Organization [facility] Address [address] [place] [address] Care Team Providers Care Contact Lens Lathe Operator Name Role Phone Deyanira Valentino MD Primary Care Provider [phone] Annabel Gonzalez Primary Care Provider Reason for Visit * Reason Comments Work Related Injury Neck Encounter Details Date Type Department Care Team (Latest Contact Info) Description 02/19/2019 10:30 EST Office Visit [facility] Occupational Medicine [address] [address] Beatriz Oliver PA-C [address] [place] [phone] Cervical strain, acute, subsequent encounter (Primary Dx) Social History Tobacco Use Types [...] on file documented as of this encounter Last Filed Vital Signs Vital Sign Reading Time Taken Comments Blood Pressure 138/74 02/19/2019 1020 EST Pulse 88 02/19/2019 1020 EST Temperature - - Respiratory Rate - - Oxygen Saturation - - Inhaled Oxygen Concentration - - Weight - - Height - - Body Mass Index - - documented in this encounter Patient Instructions * Patient Instructions* Beatriz Oliver PA - 02/19/2019 10:30 EST Continue with your exercising. Keep up the good work. Discharged from care today at medical end. 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 She was released to full duty with no mandatory overtime on 12/16/18. She has been tolerating work well. ENTERED BY: Samira Reyes RN [facility] Follow-up Visit Note Subjective: Chief Complaint(s): Work Related Injury (Neck) HPI: Irma Lombardi is a 38 y.o. year-old female that I am seeing in follow-up after a reported work-place injury. She returns for recheck of her neck strain. At her last medical f/u on 12/16 she was released to full duty with no overtime. She did not return for her recheck and was d/c from PT as she did not continue with therapy. She is doing well wit no neck pain or issues and is ready to be released from care. She has started running again and is sore but is feeling great and is happy she is starting to exercise again. I have reviewed patient's tobacco and alcohol: has no tobacco and alcohol history on file. I have reviewed current problem list and current medications. Objective: Examination: Vitals: blood pressure is 138/74 and her pulse is 88. There is no height or weight on file to calculate BMI. Physical Exam Constitutional: She is oriented to person, place, and time. No distress. Musculoskeletal: Neck: No tenderness down the cervical spine, paraspinous muscles or the trapezius muscle. FROM of the neck to flexion, extension, lateral rotation and bending. Normal refractory mixer strength. Sensation to light touch intact in the upper extremities. Neurological: She is alert and oriented to person, place, and time. Psychiatric: She has a normal mood and affect. Vitals reviewed. Assessment & Plan: 1. Cervical strain, acute, subsequent encounter She is doing well. Congratulated her on her return to running and encouraged her to continue with this. She will be released to full duty and discharged from care at [facility]. Form 20 completed. Return asneeded. documented in this encounter Miscellaneous Notes * Addendum Note - Elvin Epps - 02/19/2019 1030 ESTAddended by: ELVIN EPPS on: 02/22/2021 10:24 Modules accepted: Orders documented in this encounter Plan of Treatment Not on file documented as of this encounter Procedures Procedure Name Priority Date/Time Associated Diagnosis Comments MEASLES IGG AB Routine 02/22/2021 10:24 EST Cervical strain, acute, subsequent encounter documented in this encounter Results * MEASLES IGG AB (02/22/2021 10:24 EST) Measles IgG Ab Positive See Note 02/23/2021 0:11 EST [facility] Comment:Presence of detectab le measles virus IgG antibodies. Blood VENOUS BLOOD / Unknown Venipuncture / Unknown 02/22/2021 10:24 EST 02/22/2021 10:24 EST [facility] IMMUNOLOGY AND SEROLO GY ORDERABLES Final Result [facility] [address] [place] [address] documented in this encounter Visit Diagnoses Diagnosis Cervical strain, acute, subsequent encounter- Primary documented in this encounter Historical Medications * This list may reflect changes made after this encounter. citalopram (CELEXA) 10 mg tablet Take 10 mg by mouth daily. added in this encounter Care Teams Contact Lens Lathe Operator Relationship Specialty Start Date End Date Deyanira Valentino MD [address] [place] [address] PCP - General 12/09/09 02/21/21 Annabel Gonzalez FNP [address] [phone] PCP - General 02/22/21 06/16/22 documented as of this encounter
--- OUTSIDE RECORDS SUMMARY | 2024-02-14 15:30 | XMS_ITS | Encounter Summary ---
Author Organization [facility] Address [address] [place] [address] Care Team Providers Care Coat Room Attendant Name Role Phone [facility] Primary Care Provider [phone] Encounter Details Date Type Department Care Team (Latest Contact Info) Description 08/22/2022 Transcribe Orders [facility] Lab - Main [address] [address] Reynold Hollis MD [address] [place] [address] Familial combined hyperlipidemia (Primary Dx); Depression with anxiety; Orthostatic headache; Attention deficit hyperactivity disorder (ADHD), unspecified ADHD type Social History Tobacco Use Types Packs/Day Years [...] as of this encounter Plan of Treatment Scheduled Orders Name Type Priority Associated Diagnoses Orde r Schedule COMPLETE BLOOD COUNT AND DIFFERENTIAL Lab Routine Familial combined hyperlipidemia Depression with anxiety Orthostatic headache Attention deficit hyperactivity disorder (ADHD), unspecified ADHD type Ordered: 08/22/2022 COMPREHENSIVE METABOLIC PANEL (CMP) Lab Routine Familial combined hyperlipidemia Depression with anxiety Orthostatic headache Attention deficit hyperactivity disorder (ADHD), unspecified ADHD type Ordered: 08/22/2022 LIPID PROFILE (INCLUDES CHOLESTEROL, TRIGLYCERIDES, HDL, LDL) Lab Routine Familial combined hyperlipidemia Depression with anxiety Orthostatic headache Attention deficit hyperactivity disorder (ADHD), unspecified ADHD type Ordered: 08/22/2022 documented as of this encounter Visit Diagnoses Diagnosis Familial combined hyperlipidemia- Primary Mixed hyperlipidemia Depression with anxiety Dysthymic disorder Orthostatic headache Headache Attention deficit hyperactivity disorder (ADHD), unspecified ADHD type documented in this encounter Care Teams Coat Room Attendant Relationship Specialty Start Date End Date [facility], [facility] [address] [place] [address] PCP - General 06/17/22 documented as of this encounter
--- OUTSIDE RECORDS SUMMARY | 2024-02-14 15:30 | XMS_ITS | Encounter Summary ---
Author Organization [facility] Address [address] [place] [address] Care Team Providers Care Head Filter Press Tender Name Role Phone Deyanira Valentino MD Primary Care Provider [phone] Encounter Details Date Type Department Care Team (Latest Contact Info) Description 10/13/2015 23:32 EDT - 10/13/2015 23:59 EDT Hospital Encounter [address] [address] Unknown, Provider, Discharge Disposition: Home or Self [...] Code Departure Means Destination Home or Self Shelter documented in this encounter Plan of Treatment Not on file documented as of this encounter Visit Diagnoses Not on filedocumented in this encounter Care Teams Head Filter Press Tender Relationship Specialty Start Date End Date Deyanira Valentino MD [address] [place] [id number] PCP - General 12/09/09 02/21/21 documented as of this encounter
== END 2024-02-14 15:46 ==
PROVIDERS: PCP Family Medicine; Visit Provider Family Medicine
DX: Z12.31 Encounter for screening mammogram for malignant neoplasm of breast (principal); R92.323 Mammographic fibroglandular density, bilateral breasts
CPT/HCPCS: 77063; 77067

== ENCOUNTER 2024-05-09 08:31 | Day surgery (SDC) | payer BC, SELFPAY ==
--- NOTE | 2024-05-08 12:41 | W.PM.DSUDISC ---
Date of service: 05/09/24 Discharge Plan Disposition Patient Disposition: Home Condition: Good Discharge Details Reason For Visit: screening colonocsopy Attending Provider: Dale Hardin Primary Care Provider: Olga Hernandez Home Meds and New Rx's Prescriptions: Continued citalopram 40 mg tablet 40 mg PO DAILY Ozempic 2 mg/dose (8 mg/3 mL) pen injector 2 mg subcut QWEEK rizatriptan 10 mg tablet,disintegrating See Rx Instructions PO .COMPLEX Rx Instructions: take 1 tab at onset of headache; if no relief may repeat 1 tab after at least 2 hrs; max = 3 tabs/24 hr PO rosuvastatin 20 mg tablet 20 mg PO DAILY dextroamphetamine-amphetamine 20 mg tablet 20 mg PO DAILY dextroamphetamine-amphetamine [Adderall XR] 20 MG capsule,extended release 24hr 20 mg PO DAILY Qty: 2 bupropion HCl 150 mg tablet sustained-release 12 hr 150 mg PO BID Discontinued bisacodyl [Dulcolax (bisacodyl)] 5 mg tablet,delayed release (DR/EC) 5 mg PO ONCE Qty: 4 0RF Rx Instructions: Take per colonoscopy instructions provided by ordering providers office polyethylene glycol 3350 17 gram/dose powder 17 g PO ONCE Qty: 238 0RF Rx Instructions: Take per colonoscopy instructions provided by ordering providers office Discharge Instructions Instructions: Colon polyps, Diverticulosis Additional Instructions: Jt Stroud, was very nice meeting you today, I hope you are comfortable during the procedure. Everything went very smoothly. I did find, and removed, single polyp today. It was extremely small, and certainly nothing to worry about. This polyp we sent off for testing, and once I know its nature, my office will be in touch with regards to recommendations for future colonoscopies. Incidentally, you have just a tiny bit of diverticulosis as well. Diverticula are weak spots in the muscular layer of the colon wall. This causes the inside lining to pooch or pocket outwards. These can get infected or inflamed during episodes that we refer to as diverticulitis. But most of my patients are never bothered by them. I will attach some basic information here about typical approaches to colon polyps, as well as diverticulosis. If you need anything, or have any questions at all, please do not hesitate to ask 1. If tolerated, consume a soft, low fiber diet for 1-2 days. 2[address] Do not drive, drink alcohol, operate machinery, make critical decisions, or do activities that require coordination or balance for 24 hours. 3. Because air was put into your colon during the procedure, expelling air from your rectum (passing gas or farting) is normal. 4. You may not have a bowel movement for 1-3 days because of the colonoscopy prep. This is normal. 5. Go directly to the emergency room if you notice any of the following: Develop chills (warm to touch), or if you have a thermometer and your temperature is above 101 Difficulty breathing or difficultly swallowing Persistent vomiting Severe abdominal pain, other than gas cramps Severe chest pain Black, tarry stools Any bleeding ? exceeding one tablespoon 6. Call your physician if the site where your intravenous was started becomes red, swollen, painful, and warm to touch. 7. Your physician has reviewed your pre-procedure medications. Please continue to take those medications as previously ordered. You will be given specific information/education regarding any changes to your medications before leaving. Stand Alone Forms: Anesthesia Discharge InstJaneth, Alicia Ames (DSU) Activity:: Activity as Tolerated Diet:: As Tolerated Discharge Orders Discharge Orders: Discharge Order (Routine); Ordered 05/08/24 Ordered By: Dale Hardin DS: Diagnosis Discharge Diagnosis (1) Encounter for screening colonoscopy: Status: Acute Asessment and Plan: Follow-up on polypectomy results
--- NOTE | 2024-05-08 12:42 | W.COLOREPORT ---
Date of service: 05/09/24 Time of Service: 10:53 Colonoscopy Report Date of procedure: 05/09/24 Pre-op diagnosis general: screening colonoscopy Post-op diagnosis procedure note: other (Colon polyp, diverticulosis) Procedure: colonoscopy with polypectomy Surgeon: Dale Hardin Anesthesia Type: General:No Airway Estimated blood loss (mL): 5 Pathology: other (0.25 cm polyp at 80 cm) Complications: None Disposition: same day Indications: Irma is a 43 year old woman who needs a screening colonoscopy Prep: Miralax/Dulcolax Procedure Start Time: : Procedure End Time: :45 Retraction Time: 10 Findings: 0.25 cm flat polyp at 80 cm, sigmoid diverticulosis Procedure Description: After the induction of monitored anesthetic care, and with the patient in left lateral decubitus position, I began by performing an external anorectal exam.? This appeared normal.? Next, I performed a digital rectal exam.? I did not appreciate any abnormal findings.? Next, I advanced a colonoscope into the rectal vault.? I performed retroflexion.? This also appeared normal.? Using insufflation, I then advanced the colonoscope beyond the rectal folds and into the sigmoid colon before advancing towards the cecum.? The quality of the prep was excellent.? The scope was noted to be in the cecum by identification of the ileocecal valve and appendiceal orifice.? I then began withdrawing the colonoscope using repeated irrigation as necessary for full evaluation of the colonic mucosa. Around 80 cm from the anal verge I identified a 0.25 cm polyp. ?It appeared flat in character. ?I was able to remove this with a cold forcep polypectomy. ?I examined the site, and there was minimal bleeding. ?Once this was completed, I continued to withdraw the scope and examine the remainder of the colonic mucosa.? There were few diverticula within the sigmoid segment. Once the scope was withdrawn to the level of the rectum, great care was taken to examine portions of the rectal folds.? Finally, the scope was withdrawn and the patient was brought to the same-day surgery recovery unit as the anesthetic wore off. ?The findings and instructions were shared with the patient prior to discharge. [place] Bowel Prep [place] Bowel Prep Right Colon: 3 Left Colon: 3 Transverse Colon: 3 Total Score: 9
[2024-05-09 08:54] VITALS: BP 117/73; PULSE 68; RESP 14; TEMP 36.8; O2SAT 99
[2024-05-09] MEDS: Lactated Ringers 1,000 ML 80 ML IV (09:03)
--- NOTE | 2024-05-09 09:55 | W.ANESPRE ---
General Info Date of Service Date Performed: 05/09/24 Height: 5 ft 4 in Weight: 73.8 kg Body Mass Index (BMI): 27.9 Surgical Procedure: Operation Date: 05/09/24 09:50 Proposed Procedure Side Surgeon maria eugenia Hardin MD Meds Allergies and Home Medications Allergies Allergy/AdvReac Type Severity Reaction Status Date / Time No Known Allergies Allergy Verified 05/09/24 08:45 Home Medication ?Medication ?Instructions ?Recorded dextroamphetamine-amphetamine ER 20 mg PO DAILY #2 tab-caps 09/18/17 20 mg 24hr capsule,extend release (Adderall XR) citalopram 40 mg tablet 40 mg PO DAILY 04/22/24 dextroamphetamine-amphetamine 20 20 mg PO DAILY 04/22/24 mg tablet rizatriptan 10 mg disintegrating See Rx Instructions PO .COMPLEX 04/22/24 tablet rosuvastatin 20 mg tablet 20 mg PO DAILY 04/22/24 semaglutide 2 mg/dose (8 mg/3 mL) 2 mg subcut QWEEK 04/22/24 subcutaneous pen injector (Ozempic) bupropion HCl 150 mg tablet,12 hr 150 mg PO BID 05/07/24 sustained-release Current Visit Medications: Current Medications Generic Name Dose Route Start Last Admin Trade Name Freq PRN Reason Stop Dose Admin Ringer's Solution 1,000 mls @ 80 mls/hr 05/09/24 06:00 05/09/24 09:03 IV 05/09/24 23:59 80 mls/hr INFUSION DAVID Administration IV Miscellaneous Supplies 1 each 05/09/24 06:00 Iv Access IV 05/09/24 23:59 DIRECTED DAVID Sodium Chloride 0 ml 05/09/24 06:00 Normal Saline Flush 10 Ml Syr IV 05/09/24 23:59 PRN PRN Sodium Chloride 0 ml 05/09/24 06:00 Normal Saline 10 Ml Vial IJ 05/09/24 23:59 DIRECTED PRN Sterile Water 0 ml 05/09/24 06:00 Water,Injection,Sterile 10 Ml Vial IJ 05/09/24 23:59 DIRECTED PRN PFSH Active Problems Active Problems: Problem Status Onset Code Encounter for screening colonoscopy Acute Z12.11 Medical History Medical History Obesity Migraine Episodic tension type headache Hyperlipidemia Anxiety PTSD (post-traumatic stress disorder) Per pt. states no potential triggers at this time. Attention deficit hyperactivity disorder (ADHD) Tobacco Smoking/Tobacco Use Status: Never Alcohol Alcohol Intake: never Substance Use Substance use: Never Substance use type: does not use Vital Signs and Lab Results Vital Signs Most Recent Vital Signs in EMR: Most Recent Vital Signs Temp Pulse Resp BP Pulse Ox 36.8 C 68 14 117/73 99 05/09/24 08:54 05/09/24 08:54 05/09/24 08:54 05/09/24 08:54 05/09/24 08:54 Point of Care Results Point of Care Results: POC- Test(urine) Negative 05/09/24 08:56 Lab Results Blood Type / Crossmatch: No Data to Display Complete Blood Count: No Data to Display Complete Metabolic Panel: No Data to Display Liver Function Panel: No Data to Display Coagulation Panel: No Data to Display Cardiac Panel: No Data to Display Arterial Blood Gas: No Data to Display Venous Blood Gas: No Data to Display Pancreas Panel: No Data to Display Thyroid Panel: No Data to Display Infectious Disease: No Data to Display Blood Cultures: No Data to Display Toxicology Panel: No Data to Display Panel: No Data to Display Anesthesia Assessment and Plan Anesthesia History Personal History: No History of Anesthesia Complications Family History: No Family History of Anesthesia Complications Exercise Tolerance Exercise Tolerance: Metabolic Equivalents>4 Pertinent Negatives Pertinent Negatives: No Symptoms of GERD Cardiac & Pulmonary Exam Cardiac Exam: Normal S1/S2 Heart Sounds Pulmonary Exam: Clear Bilateral Breath Sounds Implantable Cardiac Device Does patient have a Pacemaker or an ICD?: No Airway Exam Known Difficult Airway: No Mallampati Class: 2 Mouth Opening: Normal (> 3cm) Thyromental Distance: Greater than 3 cm Neck Range of Motion: Full ROM Neck Circumference: Normal Teeth Condition: Normal Dentition ASA Classification ASA Score: ASA 2 Emergency Case?: No NPO Status NPO Status: NPO Clears >2 hours, Solids >8 hours Status Status: Negative HCG Anesthesia Plan Resuscitation Status: Full Code Anesthesia Technique: General Anesthesia Airway Planned: Natural Airway Monitors Used: Standard Monitors Preoperative Comments:: Patient has stopped taking all meds for past 5 days, semaglutide was stopped 04/22/2024
[2024-05-09 10:14] VITALS: BMI 27.9
--- NOTE | 2024-05-09 10:38 | BOWEL_PTH ---
PATIENT: Irma Lombardi LOC: [facility] U#:[id number] AGE/SX: 43/F ROOM: RE05/09/[address]: Dale Hardin MD : 1980 BED: DIS: 05/09/2024 SPEC #: [id number] RECD: 05/09/24 12:23 STATUS: MENDOZA REQ #: [id number] KEILA: 05/09/24 10:[address]: Dale Hardin DEPT: Surgical Specimen RECD BY: Ana María Bunch ENTERED: 05/09/24 12:24 SP TYPE: Bowel OTHR DR: Reynold Hollis Sabine J Tissues: 1 - BIOPSY BOWEL Procedures: GROSS AND MICRO LEVEL 4 Comments: [id number]
[2024-05-09 10:48] VITALS: BP 114/78; PULSE 77; RESP 18; TEMP 36.2; O2SAT 97
--- NOTE | 2024-05-09 10:58 | W.ANESPOSTOP ---
Postoperative Evaluation Date, Time and Location Date Performed: 05/09/24 Time Performed: 10:58 Patient Location: Day Surgery Unit Vital Signs Most Recent Imported Vital Signs: Most Recent Vital Signs Temp Pulse Resp BP Pulse Ox 36.2 C L 77 18 114/78 97 05/09/24 10:48 05/09/24 10:48 05/09/24 10:48 05/09/24 10:48 05/09/24 10:48 Pain Score Most Recent Pain Score: Most Recent Pain Score Pain Level 0 05/09/24 10:48 Assessment Mental Status: Awake (Alert & Oriented to Patient Baseline) Airway and Respiratory Function: Patent airway with normal (patient baseline) respiratory exam Cardiovascular Function: Hemodynamically Stable Hydration Status: Adequately Hydrated Nausea & Vomiting: No Nausea or Vomiting Pain: Pt. Denies Any Pain Peripheral Nerve Block: Patient did not receive a nerve block
[2024-05-09 11:17] VITALS: BP 119/78; PULSE 66; RESP 16; TEMP 36; O2SAT 99
== END 2024-05-09 11:18 | disposition home or self-care (01) ==
PROVIDERS: PCP Nurse Practitioner Family; Visit Provider Surgery
PROC: 0DJD8ZZ Inspection of Lower Intestinal Tract, Via Natural or Artificial Opening Endoscopic (ICD-10-PCS; CPT 45378; principal; 2024-05-09 09:45)
DX: Z12.11 Encounter for screening for malignant neoplasm of colon (principal); K63.5 Polyp of colon; K57.30 Diverticulosis of large intestine without perforation or abscess without bleeding; K63.89 Other specified diseases of intestine
CPT/HCPCS: 45380; 81025; 88305; J2704